=== PATIENT | female | born 1930 | race Caucasian/White ===

== ENCOUNTER 2016-11-24 13:42 | Emergency (ER) | payer BC, MEDICARE ==
--- NOTE | 2016-11-24 14:30 | ER Document Report ---
ED Medical Screen (RME) - General Chief Complaint: Dizziness Stated Complaint: WEAKNESS Time seen by provider: 14:23 Mode of Arrival: Wheelchair Information source: Patient Notes: 85 yo female c/o nausea for several weeks. blue looking in room last week, gastrointestinal distress in epigastric and RUQ for weeks (mihir 19yo ago), dizzy and shakey this morning at 11:00 (decreased now). No weight loss. Biopsy of lung was negative. No fever, chronic chills. no night sweats. Dx GERD. New meds from [facility] (lexapro) prevacid, lasix, spiranolactone, she suspects is the reason for the problems. No constipation or diarrhea. No vomiting. Granddaughter states she has bad anxiety. TRAVEL OUTSIDE OF THE [place] IN LAST 30 DAYS: No - Related Data Allergies/Adverse Reactions: No Known Allergies Allergy (Verified 11/24/16 14:03) Past Medical History Renal/ Medical History: Denies: Hx Peritoneal Dialysis Physical Exam - Vital signs Vitals: Temp Pulse Resp BP Pulse Ox 98.8 F 73 16 98/65 L 98 11/24/16 14:06 11/24/16 14:06 11/24/16 14:06 11/24/16 14:06 11/24/16 14:06 Course - Vital Signs Vital signs: Temp Pulse Resp BP Pulse Ox 98.8 F 73 16 98/65 L 98 11/24/16 14:06 11/24/16 14:06 11/24/16 14:06 11/24/16 14:06 11/24/16 14:06
[2016-11-24 15:12] LABS: ABSOLUTE LYMPHOCYTES (AUTO) 1.3 10^3/uL (0.5-4.7); ABSOLUTE MONOCYTES (AUTO) 0.4 10^3/uL (0.1-1.4); ABSOLUTE NEUT (AUTO) 3.2 10^3/uL (1.7-8.2); BASOPHILS % (AUTO) 0.9 % (0-2); EOSINOPHILS % (AUTO) 0.7 % (0-6); HEMATOCRIT 41.2 % (36.0-47.0); HEMOGLOBIN 13.7 g/dL (12.0-15.5); HGB HCT DIFFERENCE -0.1; LYMPHOCYTES % (AUTO) 26.1 % (13-45); MEAN CORPUSCULAR HEMOGLOBIN 28.8 pg (27.0-33.4); MEAN CORPUSCULAR HGB CONC 33.3 g/dL (32.0-36.0); MEAN CORPUSCULAR VOLUME 87 fl (80-97); MONOCYTES % (AUTO) 8.9 % (3-13); RED BLOOD COUNT 4.77 10^6/uL (3.72-5.28); RED CELL DISTRIBUTION WIDTH 13.1 % (11.5-14.0); SEGMENTED NEUTROPHILS % (AUTO) 63.4 % (42-78)
[2016-11-24 15:24] LABS: ALANINE AMINOTRANSFERASE 29 U/L (9-52); ALBUMIN 4.3 g/dL (3.5-5.0); ALKALINE PHOSPHATASE 55 U/L (38-126); ANION GAP 11 (5-19); ASPARTATE AMINO TRANSFERASE 26 U/L (14-36); BILIRUBIN,DIRECT 0.1 mg/dL (0.0-0.4); BLOOD UREA NITROGEN 15 mg/dL (7-20); CALCIUM 9.6 mg/dL (8.4-10.2); CARBON DIOXIDE 27 mmol/L (22-30); CHLORIDE 104 mmol/L (98-107); CREATINE KINASE 63 U/L (30-135); CREATININE RESULT 0.79 mg/dL (0.52-1.25); GLUCOSE 92 mg/dL (75-110); LIPASE 117.9 U/L (23-300); MAGNESIUM 2.2 mg/dL (1.6-2.3); POTASSIUM 4.2 mmol/L (3.6-5.0); TOTAL PROTEIN 6.9 g/dL (6.3-8.2)
[2016-11-24 15:38] LABS: TROPONIN I < 0.012 ng/mL
[2016-11-24 16:47] LABS: APPEARANCE,URINE CLEAR; BILIRUBIN,URINE NEGATIVE (NEGATIVE); GLUCOSE, URINE NEGATIVE (NEGATIVE); KETONES,URINE NEGATIVE (NEGATIVE); LEUKOCYTE ESTERASE,URINE NEGATIVE (NEGATIVE); NITRITE,URINE NEGATIVE (NEGATIVE); PROTEIN,URINE NEGATIVE (NEGATIVE); URINE SPECIFIC GRAVITY 1.005; UROBILINOGEN,URINE NEGATIVE mg/dL (<2.0)
--- NOTE | 2016-11-24 18:21 | EKG REPORT ---
SEVERITY:- ABNORMAL ECG - SINUS RHYTHM LEFT ANTERIOR FASCICULAR BLOCK CONSIDER ANTERIOR INFARCT BORDERLINE PROLONGED QT INTERVAL : Confirmed by: Cheikh Brice MD 24-Nov-2016 18:21:06
[2016-11-25 00:26] VITALS: BP 156/86
--- NOTE | 2016-11-25 00:32 | ER Document Report ---
ED General - General Chief Complaint: Dizziness Stated Complaint: WEAKNESS Mode of Arrival: Wheelchair Information source: Patient, Relative Notes: 85-year-old female history of anxiety depression chronic dizziness and nausea presents with complaints of nausea and dizziness. Patient denies any vomiting denies any fevers or chills denies any abdominal pain denies any headache. TRAVEL OUTSIDE OF THE [place] IN LAST 30 DAYS: No - HPI Onset: Other Onset/Duration: Persistent Quality of pain: No pain Severity: Mild Pain Level: Denies Associated symptoms: Nausea, Weakness, Other Exacerbated by: Denies Relieved by: Denies Similar symptoms previously: Yes Recently seen / treated by doctor: Yes - Related Data Allergies/Adverse Reactions: No Known Allergies Allergy (Verified 11/24/16 14:03) Past Medical History - General Information source: Patient - Social History Smoking Status: Never Smoker Cigarette use (# per day): No Chew tobacco use (# tins/day): No Smoking Education Provided: No Family History: Reviewed & Not Pertinent Patient has suicidal ideation: No Patient has homicidal ideation: No Renal/ Medical History: Denies: Hx Peritoneal Dialysis Review of Systems - Review of Systems Notes: REVIEW OF SYSTEMS: CONSTITUTIONAL : Denies fever, chills, or sweats. Denies recent illness. EENT: Denies eye, ear, throat, or mouth pain or symptoms. Denies nasal or sinus congestion or discharge. Denies throat, tongue, or mouth swelling or difficulty swallowing. CARDIOVASCULAR: Denies chest pain. Denies palpitations or racing or irregular heart beat. Denies ankle edema. RESPIRATORY: Denies cough, cold, or chest congestion. Denies shortness of breath, difficulty breathing, or wheezing. GASTROINTESTINAL: Admits nausea GENITOURINARY: Denies difficulty urinating, painful urination, burning, frequency, blood in urine, or discharge. FEMALE GENITOURINARY: Denies vaginal bleeding, heavy or abnormal periods, irregular periods. Denies vaginal discharge or odor. MUSCULOSKELETAL: Denies back or neck pain or stiffness. Denies joint pain or swelling. SKIN: Denies rash, lesions or sores. HEMATOLOGIC : Denies easy bruising or bleeding. LYMPHATIC: Denies swollen, enlarged glands. NEUROLOGICAL: Admits to dizziness PSYCHIATRIC: Denies anxiety or stress. Denies depression, suicidal ideation, or homicidal ideation. ALL OTHER SYSTEMS REVIEWED AND NEGATIVE. Dictation was performed using Dragon voice recognition software PHYSICAL EXAMINATION: GENERAL: Well-appearing, well-nourished and in no acute distress. HEAD: Atraumatic, normocephalic. EYES: Pupils equal round and reactive to light, extraocular movements intact, conjunctiva are normal. ENT: Nares patent, oropharynx clear without exudates. Moist mucous membranes. NECK: Normal range of motion, supple without lymphadenopathy LUNGS: Breath sounds clear to auscultation bilaterally and equal. No wheezes rales or rhonchi. HEART: Regular rate and rhythm without murmurs ABDOMEN: Soft, nontender, nondistended abdomen. No guarding, no rebound. No masses appreciated. Female : deferred Musculoskeletal: Normal range of motion, no pitting or edema. No cyanosis. NEUROLOGICAL: Cranial nerves grossly intact. Normal speech, normal gait. Normal sensory, motor exams PSYCH: Normal mood, normal affect. SKIN: Warm, Dry, normal turgor, no rashes or lesions noted. Physical Exam - Vital signs Vitals: Temp Pulse Resp BP Pulse Ox 98.8 F 73 16 98/65 L 98 11/24/16 14:05 11/24/16 14:05 11/24/16 14:05 11/24/16 14:05 11/24/16 14:05 Course - Re-evaluation Re-evalutation: 11/25/16 00:[address] of the head has a concerning area of hypoattenuation, therefore an MRI was performed which noted no acute abnormality, I reviewed this with the radiologist as well. Lab work noted no significant abnormalities. I believe patient is stable for discharge will treat with Reglan and Antivert After performing a Medical Screening Examination, I estimate there is LOW risk for INTRACRANIAL HEMORRHAGE, ISCHEMIC CVA, MALIGNANT DYSRHYTHMIA, ACUTE CORONARY SYNDROME, MENINGITIS, PULMONARY EMBOLISM, or SEPSIS thus I consider the discharge disposition reasonable. I have reevaluated this patient multiple times and no significant life threatening changes are noted. The patient and I have discussed the diagnosis and risks, and we agree with discharging home with close follow-up with the understanding that symptoms and presentations can change. We also discussed returning to the Emergency Department immediately if new or worsening symptoms occur. We have discussed the symptoms which are most concerning (e.g., changing or worsening pain, weakness, vomiting, fever) that necessitate immediate return. - Vital Signs Vital signs: Temp Pulse Resp BP Pulse Ox 98.8 F 78 16 156/86 H 97 11/24/16 14:06 11/25/16 00:10 11/25/16 00:10 11/25/16 00:10 11/25/16 00:10 - Laboratory Result Diagrams: 11/24/16 14:40 11/24/16 14:40 Laboratory results interpreted by me: 11/24/16 16:30 Urine Blood SMALL H - Diagnostic Test Radiology reviewed: Image reviewed, Reports reviewed - MRI noted no acute abnormality Discharge - Discharge Clinical Impression: Dizziness, Nausea Condition: Stable Disposition: HOME, SELF-CARE Instructions: Dizziness ([facility]) Prescriptions: Meclizine HCl [Antivert 25 mg Tablet] 25 mg PO TID PRN #21 tablet PRN Reason: Metoclopramide HCl [Reglan 10 mg Tablet] 1 - 2 tab PO ASDIR PRN #25 tablet PRN Reason: Referrals: JEAN CARLOS CURRY MD [Primary Care Provider] - Follow up tomorrow
== END 2016-11-25 00:45 | disposition home or self-care (01) ==
LOC: ER 13:42
DX: R42 Dizziness and giddiness (principal); R11.0 Nausea; R53.1 Weakness
CPT/HCPCS: 93005; 99284; 36415; 87086; 82553; 82550; 83690; 83735; 85025; 80053; 81001; 84484; 70553; 74022; 70450; 93010; A9577

== ENCOUNTER → 2017-01-29 | Outpatient (CLI) | payer MEDICARE, BC ==
--- NOTE | 2017-02-10 08:21 | WOMENS IMAGING REPORT ---
EXAM DESCRIPTION: 3D SCREENING MAMMO BILAT COMPLETED DATE/TIME: 01/29/2017 9:35 am REASON FOR STUDY: ROUTINE SCREENING; Z12.31 Z12.31 ENCNTR SCREEN MAMMOGRAM FOR MALIGNANT NEOPLASM O F ROSENDO COMPARISON: 11/26/2014, 12/10/2015 TECHNIQUE: Standard craniocaudal and mediolateral oblique views of each breast recorded using digita l acquisition and breast tomosynthesis. LIMITATIONS: None. FINDINGS: Findings present which are benign by mammographic criteria. No suspicious masses, calcifi cations or architectural distortion. Pertinent benign findings: Stable bilateral breast parenchymal calcifications Read with the assistance of CAD. .[facility] - R2 Cenova Version 1.3 .[facility] - R2 Cenova Version 1.3 .[facility] - R2 Cenova Version 2.4 .[facility] - R2 Cenova Version 2.4 .[facility] - R2 Squaring Machine Operator Version 9.2 Benign mammographic findings may include one or more of the following: Smooth masses, popcorn/rim/co arse calcifications, asymmetries, post-procedure changes, and lesions with long-standing stability. IMPRESSION: BENIGN MAMMOGRAPHIC FINDINGS. BIRADS 2 BREAST DENSITY: c. The breasts are heterogeneously dense, which may obscure small masses. BIRAD: 2 BENIGN FINDING(S) RECOMMENDATION: RECOMMENDATION: ROUTINE SCREENING COMMENT: The patient has been notified of the results by letter per SA requirements. Additional no tification policies are in place for contacting patient with suspicious or incomplete findings. Quality ID #[id number]: The [employer] recommends an annual screening mammogram for women aged 40 years or over. This facility utilizes a reminder system to ensure that all patients receive reminder letters, and/or direct phone calls for appointments. This includes reminders for routine scr eening mammograms, diagnostic mammograms, or other Breast Imaging Interventions when appropriate. Th is patient will be placed in the appropriate reminder system. The [employer] (ACR) has developed recommendations for screening MRI of the breast s in certain patient populations, to be used in conjunction with mammography. Breast MRI surveillanc e may be appropriate for women with more than 20% lifetime risk of developing breast cancer as deter mined by genetic testing, significant family history of the disease, or history of mantle radiation f or Hodgkins Disease. ACR Practice Guidelines 2008. DBT Technology DBT is a type of tomographic mammography. With conventional mammography, overlapping breast tissue ma y make lesions difficult to detect, even with good compression. DBT uses an x-ray tube that rotates a round the breast, taking images at different angles. These images are then combined to create thin sl ices of the breast that the radiologist can view as a 3D reconstruction. The [employer] unit can perform full-field digital mammograms (2D imaging); or DBT (3D imaging); or both, in a combination mode that quickly performs both the mammogram and the tomosynthesis scan while the breast is still compressed. PQRS 6045F: Fluoroscopic imaging is not utilized for breast tomosynthesis. TECHNICAL DOCUMENTATION: FINDING NUMBER: (1) ASSESSMENT: (1) JOB ID: [id number] [employer]- All Rights Reserved
== END ==
LOC: WI 09:20
PROVIDERS: ATTEND Internal Medicine
DX: Z12.31 Encounter for screening mammogram for malignant neoplasm of breast (principal)
CPT/HCPCS: 77063; G0202; 77067

== ENCOUNTER 2017-08-31 11:17 | Emergency (ER) | payer MEDICARE, BC ==
[2017-08-31] MEDS ORDERED: NORMAL SALINE 1000 ML 1,000 ML IV ONE (12:44)
--- NOTE | 2017-08-31 12:46 | ER Document Report ---
ED Medical Screen (RME) - General Chief Complaint: Abdominal Pain Stated Complaint: NAUSEA,VOMITING,ABDOMINAL PAIN Time Seen by Provider: 08/31/17 12:44 Notes: Patient was recently diagnosed with an upper respiratory tract infection/ pneumonia. She was started on Augmentin. She then began to have some nausea and was subsequently diagnosed with possible thrush. She has been placed on Mycelex as well as fluconazole. She is also been recently started on some psychiatric medications. According the daughter patient has been not eating. She has had decreased urinary output. She has lost 8 pounds recently. She states she was referred by her family physician who feels that she may have dehydration. TRAVEL OUTSIDE OF THE [place] IN LAST 30 DAYS: No - Related Data Allergies/Adverse Reactions: No Known Allergies Allergy (Verified 08/31/17 11:24) Past Medical History Pulmonary Medical History: Reports: Hx COPD Renal/ Medical History: Denies: Hx Peritoneal Dialysis GI Medical History: Reports: Hx Gastroesophageal Reflux Disease Past Surgical History: Reports: Hx Appendectomy, Hx Cholecystectomy, Hx Gynecologic Surgery - ex lap fibroidectomy, Hx Hysterectomy, Hx Orthopedic Surgery - l knee meniscal - Immunizations Hx Diphtheria, Pertussis, Tetanus Vaccination: Yes Physical Exam - Vital signs Vitals: Temp Pulse Resp BP Pulse Ox 98.4 F 90 16 127/69 H 96 08/31/17 11:49 08/31/17 11:49 08/31/17 11:49 08/31/17 11:49 08/31/17 11:49 Course - Vital Signs Vital signs: Temp Pulse Resp BP Pulse Ox 98.4 F 90 16 127/69 H 96 08/31/17 11:49 08/31/17 11:49 08/31/17 11:49 08/31/17 11:49 08/31/17 11:49
[2017-08-31 13:45] LABS: APPEARANCE,URINE CLEAR; BILIRUBIN,URINE NEGATIVE (NEGATIVE); COLOR,URINE YELLOW; GLUCOSE, URINE NEGATIVE (NEGATIVE); KETONES,URINE TRACE mg/dL (NEGATIVE); LEUKOCYTE ESTERASE,URINE NEGATIVE (NEGATIVE); NITRITE,URINE NEGATIVE (NEGATIVE); PROTEIN,URINE NEGATIVE (NEGATIVE); URINE SPECIFIC GRAVITY 1.016
[2017-08-31 14:05] LABS: ABSOLUTE LYMPHOCYTES (AUTO) 0.9 10^3/uL (0.5-4.7); ABSOLUTE MONOCYTES (AUTO) 0.3 10^3/uL (0.1-1.4); BASOPHILS % (AUTO) 0.9 % (0-2); EOSINOPHILS % (AUTO) 0.3 % (0-6); HEMATOCRIT 40.2 % (36.0-47.0); HEMOGLOBIN 13.7 g/dL (12.0-15.5); LYMPHOCYTES % (AUTO) 21.1 % (13-45); MEAN CORPUSCULAR HEMOGLOBIN 29.3 pg (27.0-33.4); MEAN CORPUSCULAR HGB CONC 34.1 g/dL (32.0-36.0); MEAN CORPUSCULAR VOLUME 86 fl (80-97); MONOCYTES % (AUTO) 6.9 % (3-13); PLATELET COUNT 199 10^3/uL (150-450); RED BLOOD COUNT 4.68 10^6/uL (3.72-5.28); RED CELL DISTRIBUTION WIDTH 13.6 % (11.5-14.0); SEGMENTED NEUTROPHILS % (AUTO) 70.8 % (42-78); TOTAL CELLS COUNTED % (AUTO) 100 %; WHITE BLOOD COUNT 4.2 10^3/uL (4.0-10.5)
[2017-08-31 14:28] LABS: ALANINE AMINOTRANSFERASE 32 U/L (9-52); ALBUMIN 4.8 g/dL (3.5-5.0); ALKALINE PHOSPHATASE 59 U/L (38-126); ANION GAP 12 (5-19); ASPARTATE AMINO TRANSFERASE 28 U/L (14-36); BILIRUBIN,DIRECT 0.2 mg/dL (0.0-0.4); BILIRUBIN,TOTAL 0.9 mg/dL (0.2-1.3); BLOOD UREA NITROGEN 16 mg/dL (7-20); CALCIUM 10.6 mg/dL (8.4-10.2); CARBON DIOXIDE 26 mmol/L (22-30); CHLORIDE 106 mmol/L (98-107); GLUCOSE 90 mg/dL (75-110); POTASSIUM 4.1 mmol/L (3.6-5.0); SODIUM 144.1 mmol/L (137-145); TOTAL PROTEIN 7.5 g/dL (6.3-8.2)
--- NOTE | 2017-08-31 18:28 | ER Document Report ---
ED General - General Chief Complaint: Abdominal Pain Stated Complaint: NAUSEA,VOMITING,ABDOMINAL PAIN Time Seen by Provider: 08/31/17 12:44 Information source: Patient, Relative TRAVEL OUTSIDE OF THE [place] IN LAST 30 DAYS: No - HPI Patient complains to provider of: tongue and throat pain Onset: Last week Onset/Duration: Gradual Quality of pain: Sharp Notes: Patient states on 08/03/2017 she was diagnosed with strep she had 4 days antibiotics. She stated the antibiotics bother her stomach so much she had to stop. She did receive Bicillin on 08/07/2017. Patient states that that she has had pain in her mouth especially the tip of her tongue as well as reflux since taking antibiotics.She is also on diflucan for thrush but this also bothers her stomach. Not eating very much. - Related Data Allergies/Adverse Reactions: No Known Allergies Allergy (Verified 08/31/17 11:24) Past Medical History - General Information source: Patient, Relative - Social History Smoking Status: Unknown if Ever Smoked Chew tobacco use (# tins/day): No Frequency of alcohol use: Rare Drug Abuse: None Family History: Reviewed & Not Pertinent Patient has suicidal ideation: No Patient has homicidal ideation: No - Past Medical History Cardiac Medical History: Reports: None Pulmonary Medical History: Reports: Hx Asthma, Hx COPD EENT Medical History: Reports: None Neurological Medical History: Reports: None Endocrine Medical History: Reports: None Renal/ Medical History: Denies: Hx Peritoneal Dialysis GI Medical History: Reports: Hx Gastroesophageal Reflux Disease Musculoskeltal Medical History: Reports Hx Arthritis Psychiatric Medical History: Reports: Hx Anxiety Traumatic Medical History: Reports: None Past Surgical History: Reports: Hx Appendectomy, Hx Cholecystectomy, Hx Gynecologic Surgery - ex lap fibroidectomy, Hx Hysterectomy, Hx Orthopedic Surgery - l knee meniscal - Immunizations Hx Diphtheria, Pertussis, Tetanus Vaccination: Yes Review of Systems - Review of Systems Constitutional: Malaise EENT: Mouth pain Cardiovascular: No symptoms reported Respiratory: No symptoms reported Gastrointestinal: Constipation, Poor appetite, Poor fluid intake. denies: Abdomen distended, Abdominal pain, Diarrhea, Nausea, Vomiting Genitourinary: No symptoms reported Female Genitourinary: No symptoms reported Musculoskeletal: No symptoms reported Skin: No symptoms reported Hematologic/Lymphatic: No symptoms reported Neurological/Psychological: No symptoms reported Physical Exam - Vital signs Vitals: Temp Pulse Resp BP Pulse Ox 98.4 F 90 16 127/69 H 96 08/31/17 11:49 08/31/17 11:49 08/31/17 11:49 08/31/17 11:49 08/31/17 11:49 - Notes Notes: PHYSICAL EXAMINATION: GENERAL: Well-appearing, well-nourished and in no acute distress. Markedly anxious. HEAD: Atraumatic, normocephalic. EYES: Pupils equal round and reactive to light, extraocular movements intact, conjunctiva are normal. ENT: Nares patent, oropharynx clear without exudates. Moist mucous membranes. No thrush. NECK: Normal range of motion, supple without lymphadenopathy LUNGS: Breath sounds clear to auscultation bilaterally and equal. No wheezes rales or rhonchi. HEART: Regular rate and rhythm without murmurs ABDOMEN: Soft, nontender, nondistended abdomen. No guarding, no rebound. No masses appreciated. Female : deferred Musculoskeletal: Normal range of motion, no pitting or edema. No cyanosis. NEUROLOGICAL: Cranial nerves grossly intact. Normal speech, normal gait. Normal sensory, motor exams PSYCH: Normal mood, normal affect. SKIN: Warm, Dry, normal turgor, no rashes or lesions noted. Course - Re-evaluation Re-evalutation: 08/31/17 18:23 Did spend 15 minutes talking with the patient as well as her family members. Patient is extremely anxious. She has multiple questions. I did answer them all. Patient was discharged home in stable condition. She was instructed to take Prevacid 30 mg p.o. daily. She was instructed to stop taking her Diflucan as I do not see any signs of thrush. She was told to eat 3 good meals throughout the day. To avoid dairy for now. She can add almond milk in her oatmeal so that she will get increased protein intake. Told her if she continues to have reflux that is not controlled she will have to get another GI consult for possible endoscopy. Patient and family members verbalized understanding. All questions were answered. Patient left with a plan that she was agreeable to. 09/01/17 21:21 09/01/17 21:21 Labs- Entire Visit 08/31/17 08/31/17 08/31/17 13:25 13:40 13:40 WBC 4.2 RBC 4.68 Hgb 13.7 Hct 40.2 MCV 86 MCH 29.3 MCHC 34.1 RDW 13.6 Plt Count 199 Seg Neutrophils % 70.8 Lymphocytes % 21.1 Monocytes % 6.9 Eosinophils % 0.3 Basophils % 0.9 Absolute Neutrophils 3.0 Absolute Lymphocytes 0.9 Absolute Monocytes 0.3 Absolute Eosinophils 0.0 Absolute Basophils 0.0 Sodium 144.1 Potassium 4.1 Chloride 106 Carbon Dioxide 26 Anion Gap 12 BUN 16 Creatinine 0.79 Est GFR ( Amer) > 60 Est GFR (Non-Af Amer) > 60 Glucose 90 Calcium 10.6 H Total Bilirubin 0.9 Direct Bilirubin 0.2 Neonat Total Bilirubin Not Reportable Neonat Direct Bilirubin Not Reportable Neonat Indirect Bili Not Reportable AST 28 ALT 32 Alkaline Phosphatase 59 Total Protein 7.5 Albumin 4.8 Urine Color YELLOW Urine Appearance CLEAR Urine pH 6.0 Ur Specific [place] 1.016 Urine Protein NEGATIVE Urine Glucose (UA) NEGATIVE Urine Ketones TRACE H Urine Blood NEGATIVE Urine Nitrite NEGATIVE Urine Bilirubin NEGATIVE Urine Urobilinogen 2.0 H Ur Leukocyte Esterase NEGATIVE Urine WBC (Auto) 2 Urine RBC (Auto) 1 U Hyaline Cast (Auto) 4 Urine Mucus (Auto) OCC Urine Ascorbic Acid NEGATIVE - Vital Signs Vital signs: Temp Pulse Resp BP Pulse Ox 97.5 F 87 18 129/75 H 97 08/31/17 18:30 08/31/17 18:30 08/31/17 18:30 08/31/17 18:30 08/31/17 18:30 - Laboratory Result Diagrams: 08/31/17 13:40 08/31/17 13:40 Laboratory results interpreted by me: 08/31/17 08/31/17 13:25 13:40 Calcium 10.6 H Urine Ketones TRACE H Urine Urobilinogen 2.0 H Discharge - Discharge Clinical Impression: Mouth pain Disposition: HOME, SELF-CARE Additional Instructions: Follow up with your physician tomorrow for further care or return to the ED IMMEDIATELY if symptoms worsen or new concerns occur. If you cannot afford to follow up with your primary care physician a list of low cost clinics have been provided at the end of your discharge papers as well. Referrals: JEAN CARLOS CURRY MD [Primary Care Provider] - Follow up as needed
[2017-08-31 18:36] VITALS: BP 129/75
== END 2017-08-31 18:36 | disposition home or self-care (01) ==
LOC: ER 11:17
DX: K08.89 Other specified disorders of teeth and supporting structures (principal); R10.9 Unspecified abdominal pain; R11.2 Nausea with vomiting, unspecified; R07.0 Pain in throat; F41.9 Anxiety disorder, unspecified
CPT/HCPCS: 99284; 96360; 36415; 85025; 80053; 81001; J7030

== ENCOUNTER 2017-09-04 21:21 | Emergency (ER) | payer MEDICARE, BC ==
[2017-09-04] MEDS ORDERED: NORMAL SALINE 500 ML IV ONE (21:49)
[2017-09-04 22:01] LABS: ABSOLUTE BASOPHILS # (AUTO) 0.1 10^3/uL (0.0-0.2); ABSOLUTE LYMPHOCYTES (AUTO) 1.4 10^3/uL (0.5-4.7); ABSOLUTE MONOCYTES (AUTO) 0.4 10^3/uL (0.1-1.4); ABSOLUTE NEUT (AUTO) 2.9 10^3/uL (1.7-8.2); BASOPHILS % (AUTO) 1.1 % (0-2); EOSINOPHILS % (AUTO) 0.8 % (0-6); HEMATOCRIT 38.9 % (36.0-47.0); HEMOGLOBIN 13.1 g/dL (12.0-15.5); LYMPHOCYTES % (AUTO) 29.7 % (13-45); MEAN CORPUSCULAR HEMOGLOBIN 29.1 pg (27.0-33.4); MEAN CORPUSCULAR HGB CONC 33.8 g/dL (32.0-36.0); MEAN CORPUSCULAR VOLUME 86 fl (80-97); MONOCYTES % (AUTO) 8.6 % (3-13); PLATELET COUNT 205 10^3/uL (150-450); RED BLOOD COUNT 4.52 10^6/uL (3.72-5.28); RED CELL DISTRIBUTION WIDTH 13.6 % (11.5-14.0); SEGMENTED NEUTROPHILS % (AUTO) 59.8 % (42-78); TOTAL CELLS COUNTED % (AUTO) 100 %; WHITE BLOOD COUNT 4.8 10^3/uL (4.0-10.5)
[2017-09-04 22:20] LABS: ALANINE AMINOTRANSFERASE 21 U/L (9-52); ALBUMIN 4.6 g/dL (3.5-5.0); ALKALINE PHOSPHATASE 51 U/L (38-126); ANION GAP 10 (5-19); ASPARTATE AMINO TRANSFERASE 30 U/L (14-36); BILIRUBIN,DIRECT 0.1 mg/dL (0.0-0.4); BILIRUBIN,TOTAL 0.8 mg/dL (0.2-1.3); BLOOD UREA NITROGEN 13 mg/dL (7-20); CARBON DIOXIDE 26 mmol/L (22-30); CHLORIDE 104 mmol/L (98-107); GLUCOSE 139 mg/dL (75-110); LIPASE 161.4 U/L (23-300); POTASSIUM 3.3 mmol/L (3.6-5.0); SODIUM 140.1 mmol/L (137-145); TOTAL PROTEIN 6.9 g/dL (6.3-8.2)
[2017-09-04 23:33] LABS: APPEARANCE,URINE CLEAR; BILIRUBIN,URINE NEGATIVE (NEGATIVE); COLOR,URINE STRAW; GLUCOSE, URINE NEGATIVE (NEGATIVE); KETONES,URINE NEGATIVE (NEGATIVE); LEUKOCYTE ESTERASE,URINE SMALL (NEGATIVE); NITRITE,URINE NEGATIVE (NEGATIVE); PROTEIN,URINE NEGATIVE (NEGATIVE); URINE SPECIFIC GRAVITY 1.003; UROBILINOGEN,URINE NEGATIVE mg/dL (<2.0)
--- NOTE | 2017-09-04 23:55 | RADIOLOGY REPORT (SQ) ---
EXAM DESCRIPTION: CT ABD/PELVIS WITH IV ONLY COMPLETED DATE/TIME: 09/04/2017 11:25 pm REASON FOR STUDY: elderly abdominal pain COMPARISON: None. TECHNIQUE: CT scan of the abdomen and pelvis performed using helical scanning technique with dynamic intravenous contrast injection. No oral contrast. Images reviewed with lung, soft tissue, and bone windows. Reconstructed coronal and sagittal MPR images reviewed. Delayed images for evaluation of the urinary system also acquired. All images stored on PACS. All CT scanners at this facility use dose modulation, iterative reconstruction, and/or weight based d osing when appropriate to reduce radiation dose to as low as reasonably achievable (ALARA). [facility]: Dose Right [facility]: CareDose [facility]: Dose Right [facility]: Teradose 4D [facility]: Gotuit CONTRAST TYPE AND DOSE: contrast/concentration: Isovue 370.00 mg/ml; Total Contrast Delivered: 67.0 ml; Total Saline Delivered: 65.1 ml RENAL FUNCTION: GFR > 60. RADIATION DOSE: CT Rad equipment meets quality standard of care and radiation dose reduction techniq ues were employed. CTDIvol: 5.7 - 7.7 mGy. DLP: 617 mGy-cm.. LIMITATIONS: None. FINDINGS: LOWER CHEST: No significant findings. No nodules or infiltrates. LIVER: Normal size. No masses. No dilated ducts. SPLEEN: Normal size. No focal lesions. PANCREAS: No masses. No significant calcifications. No adjacent inflammation or peripancreatic fluid collections. Pancreatic duct not dilated. GALLBLADDER: Surgically absent. ADRENAL GLANDS: No significant masses or asymmetry. RIGHT KIDNEY AND URETER: No solid masses. No significant calcifications. No hydronephrosis or hyd roureter. LEFT KIDNEY AND URETER: No solid masses. No significant calcifications. No hydronephrosis or hydr oureter. AORTA AND VESSELS: No aneurysm. No dissection. Renal arteries, SMA, celiac without stenosis. RETROPERITONEUM: No retroperitoneal adenopathy, hemorrhage or masses. BOWEL AND PERITONEAL CAVITY: No masses or inflammatory changes. No free fluid or peritoneal masses. APPENDIX: Normal. PELVIS: Prior hysterectomy. No free fluid. Normal bladder. ABDOMINAL WALL: No masses. No hernias. BONES: No acute findings. OTHER: No other significant finding. IMPRESSION: NO ACUTE FINDING IN THE ABDOMEN OR PELVIS ON CT SCAN WITH IV CONTRAST. TECHNICAL DOCUMENTATION: JOB ID: [id number] Quality ID # [id number]: Final reports with documentation of one or more dose reduction techniques (e.g., Au tomated exposure control, adjustment of the mA and/or kV according to patient size, use of iterative reconstruction technique) 2010 [employer]- All Rights Reserved
[2017-09-05 00:33] VITALS: BP 133/72
--- NOTE | 2017-09-05 00:52 | ER Document Report ---
ED General - General Chief Complaint: Abdominal Pain Stated Complaint: ABDOMINAL PAIN Time Seen by Provider: 09/04/17 22:18 Notes: Patient is an 86-year-old female who presents with multiple complaints. Her primary concern is regarding a poor taste in her mouth which she describes as "feeling like somebody is trying to poison me". She also notes a dull, constant , epigastric abdominal pain worsened by eating or drinking. Patient states that she feels very anxious all the time. Family at the bedside reports that the patient has been reading up the side effects of almost every medication that she is taking and then develops those side effects thereafter. The patient denies this complaint stating that the family is exaggerating. The patient is also often refused to take medications that have been prescribed by her primary care doctor due to concerns about side effects. The patient was seen in the emergency department several days ago for the same complaints at that time. She struggled to identify what improves or worsens her symptoms. The family at bedside states that they feel very strongly that this is all related to patient's underlying anxiety. TRAVEL OUTSIDE OF THE [place] IN LAST 30 DAYS: No - Related Data Allergies/Adverse Reactions: No Known Allergies Allergy (Verified 08/31/17 11:24) Past Medical History - General Information source: Patient, Relative - Social History Smoking Status: Never Smoker Chew tobacco use (# tins/day): No Frequency of alcohol use: None Drug Abuse: None Lives with: Family Family History: Reviewed & Not Pertinent Patient has suicidal ideation: No Patient has homicidal ideation: No Pulmonary Medical History: Reports: Hx Asthma, Hx COPD Renal/ Medical History: Denies: Hx Peritoneal Dialysis GI Medical History: Reports: Hx Gastroesophageal Reflux Disease Musculoskeltal Medical History: Reports Hx Arthritis Psychiatric Medical History: Reports: Hx Anxiety Past Surgical History: Reports: Hx Appendectomy, Hx Cholecystectomy, Hx Gynecologic Surgery - ex lap fibroidectomy, Hx Hysterectomy, Hx Orthopedic Surgery - l knee meniscal - Immunizations Hx Diphtheria, Pertussis, Tetanus Vaccination: Yes Review of Systems - Review of Systems Notes: Constitutional: Negative for fever. HENT: Positive for mouth pain Eyes: Negative for visual changes. Cardiovascular: Negative for chest pain. Respiratory: Negative for shortness of breath. Gastrointestinal: Positive for abdominal pain nausea Genitourinary: Negative for dysuria. Musculoskeletal: Negative for back pain. Skin: Negative for rash. Neurological: Negative for headaches, weakness or numbness. 10 point ROS negative except as marked above and in HPI. Physical Exam - Vital signs Vitals: Temp Pulse Resp BP Pulse Ox 97.9 F 79 20 88/53 L 98 09/04/17 21:33 09/04/17 21:33 09/04/17 21:33 09/04/17 21:33 09/04/17 21:33 Interpretation: Hypotensive - This did resolve spontaneously Notes: PHYSICAL EXAMINATION: GENERAL: Well-appearing, well-nourished and in no acute distress. HEAD: Atraumatic, normocephalic. EYES: Pupils equal round and reactive to light, extraocular movements intact, sclera anicteric, conjunctiva are normal. ENT: nares patent, oropharynx clear without exudates. Moist mucous membranes. NECK: Normal range of motion, supple without lymphadenopathy LUNGS: Breath sounds clear to auscultation bilaterally and equal. No wheezes rales or rhonchi. HEART: Regular rate and rhythm without murmurs ABDOMEN: Soft, nontender, normoactive bowel sounds. No guarding, no rebound. No masses appreciated. EXTREMITIES: Normal range of motion, no pitting or edema. No cyanosis. NEUROLOGICAL: No focal neurological deficits. Moves all extremities spontaneously and on command. PSYCH: Appears extremely anxious, somewhat tremulous SKIN: Warm, Dry, normal turgor, no rashes or lesions noted. Course - Re-evaluation Re-evalutation: 09/05/17 00:50 Patient presents with multiple vague complaints that did not appear to be concerning for any acute life-threatening pathology. Vitals are within normal limits at triage and at time of discharge. Physical examination is unremarkable. Patient has tolerated oral intake without difficulty. Patient was not noted to be in distress at any point during their ER visit. At this time, based on the reassuring evaluation, I do not suspect an acute MN, pulmonary embolus, aortic dissection, acute intra-abdominal pathology, stroke, or sepsis. Labs, CT abdomen pelvis are all unremarkable. Patient is extremely anxious and clearly has underlying untreated depression. She did recently start Zoloft through her psychiatrist but has been very hesitant to take this due to concern about side effects. Again emphasized with the patient the critical importance of continuing to take these medications as I feel her fixation on side effect profiles is likely part of her untreated depression and anxiety. I have also started her on famotidine 40 mg twice daily. Will discharge with return precautions and follow-up recommendations. Verbal discharge instructions given a the bedside and opportunity for questions given. Medication warnings reviewed. Patient is in agreement with this plan and has verbalized understanding of return precautions and the need for primary care follow-up in the next 24-72 hours. - Vital Signs Vital signs: Temp Pulse Resp BP Pulse Ox 97.9 F 79 9 L 133/72 H 98 09/04/17 21:33 09/04/17 21:33 09/05/17 00:33 09/05/17 00:33 09/05/17 00:33 - Laboratory Result Diagrams: 09/04/17 21:40 09/04/17 21:40 Laboratory results interpreted by me: 09/04/17 09/04/17 21:40 23:00 Potassium 3.3 L Glucose 139 H Ur Leukocyte Esterase SMALL H - Diagnostic Test Radiology reviewed: Reports reviewed Discharge - Discharge Clinical Impression: Chronic anxiety, Epigastric abdominal pain Condition: Good Disposition: HOME, SELF-CARE Additional Instructions: Your symptoms appear to be most consistent with stomach or upper intestinal irritation. Please begin taking famotidine 40 mg in the morning and 40 mg at night. You may also take medicine such as Pepto-Bismol or Tums to assist with your pain. Please return to emergency department immediately if you have worsening of your pain, shortness of breath, vomiting, become unable to exert yourself due to pain or difficulty breathing, you pass out, or have any pain that radiates into your arms, jaw, or back. Please also return if you have any additional symptoms that are concerning to you. Please also continue to take the Zoloft that has been prescribed by your psychiatrist. This will be critical in improving your overall symptoms. Prescriptions: Famotidine 40 mg PO BID #60 tablet Referrals: JEAN CARLOS CURRY MD [Primary Care Provider] - Follow up as needed
== END 2017-09-05 01:04 | disposition home or self-care (01) ==
LOC: ER 21:21
DX: F41.9 Anxiety disorder, unspecified (principal); R10.13 Epigastric pain
CPT/HCPCS: 99284; 36415; 83690; 85025; 80053; 81001; 74177; J7040

== ENCOUNTER → 2017-09-14 | Outpatient (CLI) | payer MEDICARE, BC ==
--- NOTE | 2017-09-14 16:33 | RADIOLOGY REPORT (SQ) ---
EXAM DESCRIPTION: UPPER GI/SM BOWEL COMPLETED DATE/TIME: 09/14/2017 10:00 am REASON FOR STUDY: HEARTBURN (R12) R12 HEARTBURN COMPARISON: None. TECHNIQUE: Under fluoroscopic guidance, patient ingested effervescent granules followed by thick and thin barium. Fluoroscopic spot images and routine radiographic images acquired and stored on PACS. 12 MM BARIUM TABLET GIVEN: Yes. No significant delay in passage. LIMITATIONS: None. FLUOROSCOPY TIME: FLUORO TIME: 3.8 minutes 27 images saved to PACS. FINDINGS: NEUROMUSCULAR COORDINATION OF SWALLOW: Normal. No aspiration. ESOPHAGEAL MOTILITY: Normal peristalsis. No esophageal spasm. ESOPHAGEAL MUCOSA: Normal mucosa without masses or ulceration. GASTRO-ESOPHAGEAL JUNCTION: Tiny hiatal hernia. Unprovoked gastroesophageal reflux to the cervical e sophagus. STOMACH: Normal without masses or ulcerations. GASTRIC OUTLET: No delay in emptying. Normal pylorus. DUODENAL BULB: Normal distention. No spasm or ulceration. DUODENUM: Mucosa normal. No extrinsic masses or malrotation. PROXIMAL SMALL BOWEL: Mucosa normal. No extrinsic masses or malrotation. NON-GI TRACT STRUCTURES: No significant finding. OTHER: Clips right upper quadrant post cholecystectomy. IMPRESSION: Gastroesophageal reflux to the cervical esophagus. No esophageal stricture. No gastric outlet obstruction. Normal small bowel transit time and mucosal fold pattern. COMMENT: Quality ID [id number]: Final reports for procedures using fluoroscopy that document radiation exp osure indices, or exposure time and number of fluorographic images (if radiation exposure indices are not available) TECHNICAL DOCUMENTATION: JOB ID: [id number] [employer]- All Rights Reserved
== END ==
LOC: RAD 07:33
PROVIDERS: ATTEND Internal Medicine Gastroenterology
DX: R12 Heartburn (principal)
CPT/HCPCS: 74249

== ENCOUNTER 2017-09-18 10:23 | Emergency (ER) | payer MEDICARE, BC ==
--- NOTE | 2017-09-18 10:44 | ER Document Report ---
ED Medical Screen (RME) - General Chief Complaint: Shortness Of Breath Stated Complaint: SHORTNESS OF BREATH Time Seen by Provider: 09/18/17 10:42 Mode of Arrival: Wheelchair Information source: Patient, Relative TRAVEL OUTSIDE OF THE [place] IN LAST 30 DAYS: No - HPI Patient complains to provider of: sob Onset: Other - pt states she has been sob for several days -- states she has a h /o asthma but has stopped taking her meds - Related Data Allergies/Adverse Reactions: No Known Allergies Allergy (Verified 08/31/17 11:24) Past Medical History Pulmonary Medical History: Reports: Hx Asthma, Hx COPD Renal/ Medical History: Denies: Hx Peritoneal Dialysis GI Medical History: Reports: Hx Gastroesophageal Reflux Disease Musculoskeltal Medical History: Reports Hx Arthritis Psychiatric Medical History: Reports: Hx Anxiety Past Surgical History: Reports: Hx Appendectomy, Hx Cholecystectomy, Hx Gynecologic Surgery - ex lap fibroidectomy, Hx Hysterectomy, Hx Orthopedic Surgery - l knee meniscal - Immunizations Hx Diphtheria, Pertussis, Tetanus Vaccination: Yes Physical Exam - Vital signs Vitals: Pulse Resp BP Pulse Ox 83 18 105/54 L 99 09/18/17 10:34 09/18/17 10:34 09/18/17 10:34 09/18/17 10:34 Course - Vital Signs Vital signs: Temp Pulse Resp BP Pulse Ox 83 18 105/54 L 99 09/18/17 10:34 09/18/17 10:34 09/18/17 10:34 09/18/17 10:34
[2017-09-18 11:27] LABS: ABSOLUTE BASOPHILS # (AUTO) 0.1 10^3/uL (0.0-0.2); ABSOLUTE LYMPHOCYTES (AUTO) 0.9 10^3/uL (0.5-4.7); ABSOLUTE MONOCYTES (AUTO) 0.4 10^3/uL (0.1-1.4); BASOPHILS % (AUTO) 1.2 % (0-2); EOSINOPHILS % (AUTO) 0.3 % (0-6); HEMATOCRIT 40.1 % (36.0-47.0); HEMOGLOBIN 13.7 g/dL (12.0-15.5); LYMPHOCYTES % (AUTO) 21.4 % (13-45); MEAN CORPUSCULAR HGB CONC 34.2 g/dL (32.0-36.0); MEAN CORPUSCULAR VOLUME 85 fl (80-97); MONOCYTES % (AUTO) 8.8 % (3-13); PLATELET COUNT 233 10^3/uL (150-450); RED BLOOD COUNT 4.72 10^6/uL (3.72-5.28); RED CELL DISTRIBUTION WIDTH 13.5 % (11.5-14.0); SEGMENTED NEUTROPHILS % (AUTO) 68.3 % (42-78); TOTAL CELLS COUNTED % (AUTO) 100 %; WHITE BLOOD COUNT 4.3 10^3/uL (4.0-10.5)
--- NOTE | 2017-09-18 11:40 | RADIOLOGY REPORT (SQ) ---
EXAM DESCRIPTION: CHEST PA/LAT COMPLETED DATE/TIME: 09/18/2017 11:23 am REASON FOR STUDY: sob COMPARISON: None. NUMBER OF VIEWS: Two view. TECHNIQUE: Frontal and lateral radiographic views of the chest acquired. LIMITATIONS: None. FINDINGS: LUNGS AND PLEURA: No opacities, masses or pneumothorax. No pleural effusion. Attenuated bl ood vessels and flattened phil-diaphragms. MEDIASTINUM AND HILAR STRUCTURES: No masses. No contour abnormalities. HEART AND VASCULAR STRUCTURES: Heart normal in size and contour. No evidence for failure. BONES: No acute findings. Osteoporotic HARDWARE: None in the chest. OTHER: No other significant finding. IMPRESSION: COPD. NO ACUTE RADIOGRAPHIC FINDING IN THE CHEST. TECHNICAL DOCUMENTATION: JOB ID: [id number] [employer]- All Rights Reserved
[2017-09-18 11:48] LABS: APPEARANCE,URINE CLEAR; BILIRUBIN,URINE NEGATIVE (NEGATIVE); COLOR,URINE YELLOW; GLUCOSE, URINE NEGATIVE (NEGATIVE); KETONES,URINE NEGATIVE (NEGATIVE); LEUKOCYTE ESTERASE,URINE NEGATIVE (NEGATIVE); NITRITE,URINE NEGATIVE (NEGATIVE); PROTEIN,URINE NEGATIVE (NEGATIVE); URINE SPECIFIC GRAVITY 1.005
[2017-09-18 11:49] LABS: ALANINE AMINOTRANSFERASE 18 U/L (9-52); ALBUMIN 4.6 g/dL (3.5-5.0); ALKALINE PHOSPHATASE 49 U/L (38-126); ANION GAP 14 (5-19); ASPARTATE AMINO TRANSFERASE 23 U/L (14-36); BILIRUBIN,DIRECT 0.1 mg/dL (0.0-0.4); BILIRUBIN,TOTAL 0.7 mg/dL (0.2-1.3); BLOOD UREA NITROGEN 10 mg/dL (7-20); CALCIUM 10.6 mg/dL (8.4-10.2); CARBON DIOXIDE 21 mmol/L (22-30); CHLORIDE 108 mmol/L (98-107); GLUCOSE 94 mg/dL (75-110); SODIUM 142.7 mmol/L (137-145); TOTAL PROTEIN 6.7 g/dL (6.3-8.2)
--- NOTE | 2017-09-18 12:06 | ER Document Report ---
ED General - General Chief Complaint: Shortness Of Breath Stated Complaint: SHORTNESS OF BREATH Time Seen by Provider: 09/18/17 10:42 Mode of Arrival: Wheelchair Information source: Patient Notes: 86-year-old female presents with complaints of shortness of breath and constipation. Patient notes the symptoms have been intermittent for months, notes she had a recent GI evaluation was noted to be normal, patient does have a history of anxiety and did not take her clonazepam today. She is noted to be breathing with no difficulty and is able to speak extensively with no stopping and no complaints Patient notes the shortness of breath occurred this morning when she was trying to have her bowel movement and she felt shaky TRAVEL OUTSIDE OF THE [place] IN LAST 30 DAYS: No - HPI Onset: Just prior to arrival Onset/Duration: Sudden Quality of pain: No pain Severity: Mild Pain Level: Denies Associated symptoms: Shortness of breath Exacerbated by: Denies Relieved by: Denies Similar symptoms previously: Yes Recently seen / treated by doctor: Yes - Related Data Allergies/Adverse Reactions: No Known Allergies Allergy (Verified 08/31/17 11:24) Past Medical History - General Information source: Patient, Relative - Social History Smoking Status: Never Smoker Cigarette use (# per day): No Chew tobacco use (# tins/day): No Smoking Education Provided: No Frequency of alcohol use: None Drug Abuse: None Family History: Reviewed & Not Pertinent Patient has suicidal ideation: No Patient has homicidal ideation: No Pulmonary Medical History: Reports: Hx Asthma, Hx COPD Renal/ Medical History: Denies: Hx Peritoneal Dialysis GI Medical History: Reports: Hx Gastroesophageal Reflux Disease Musculoskeltal Medical History: Reports Hx Arthritis Psychiatric Medical History: Reports: Hx Anxiety Past Surgical History: Reports: Hx Appendectomy, Hx Cholecystectomy, Hx Gynecologic Surgery - ex lap fibroidectomy, Hx Hysterectomy, Hx Orthopedic Surgery - l knee meniscal - Immunizations Hx Diphtheria, Pertussis, Tetanus Vaccination: Yes Review of Systems - Review of Systems Notes: REVIEW OF SYSTEMS: CONSTITUTIONAL : Denies fever, chills, or sweats. Denies recent illness. EENT: Denies eye, ear, throat, or mouth pain or symptoms. Denies nasal or sinus congestion or discharge. Denies throat, tongue, or mouth swelling or difficulty swallowing. CARDIOVASCULAR: Denies chest pain. Denies palpitations or racing or irregular heart beat. Denies ankle edema. RESPIRATORY: Admits to shortness of breath GASTROINTESTINAL: Denies abdominal pain or distention. Denies nausea, vomiting , or diarrhea. Denies blood in vomitus, stools, or per rectum. Denies black, tarry stools. Denies constipation. GENITOURINARY: Denies difficulty urinating, painful urination, burning, frequency, blood in urine, or discharge. FEMALE GENITOURINARY: Denies vaginal bleeding, heavy or abnormal periods, irregular periods. Denies vaginal discharge or odor. MUSCULOSKELETAL: Denies back or neck pain or stiffness. Denies joint pain or swelling. SKIN: Denies rash, lesions or sores. HEMATOLOGIC : Denies easy bruising or bleeding. LYMPHATIC: Denies swollen, enlarged glands. NEUROLOGICAL: Denies confusion or altered mental status. Denies passing out or loss of consciousness. Denies dizziness or lightheadedness. Denies headache. Denies weakness or paralysis or loss of use of either side. Denies problems with gait or speech. Denies sensory loss, numbness, or tingling. Denies seizures. PSYCHIATRIC: Anxious ALL OTHER SYSTEMS REVIEWED AND NEGATIVE. PHYSICAL EXAMINATION: GENERAL: Well-appearing, well-nourished and in no acute distress. HEAD: Atraumatic, normocephalic. EYES: Pupils equal round and reactive to light, extraocular movements intact, conjunctiva are normal. ENT: Nares patent, oropharynx clear without exudates. Moist mucous membranes. NECK: Normal range of motion, supple without lymphadenopathy LUNGS: Breath sounds clear to auscultation bilaterally and equal. No wheezes rales or rhonchi. HEART: Regular rate and rhythm without murmurs ABDOMEN: Soft, nontender, nondistended abdomen. No guarding, no rebound. No masses appreciated. Female : deferred Musculoskeletal: Normal range of motion, no pitting or edema. No cyanosis. NEUROLOGICAL: Cranial nerves grossly intact. Normal speech, normal gait. Normal sensory, motor exams PSYCH: Extremely anxious. SKIN: Warm, Dry, normal turgor, no rashes or lesions noted. Dictation was performed using [employer] recognition software Physical Exam - Vital signs Vitals: Pulse Resp BP Pulse Ox 83 18 105/54 L 99 09/18/17 10:34 09/18/17 10:34 09/18/17 10:34 02/23/18 10:34 Course - Re-evaluation Re-evalutation: 09/18/17 14:18 Patient's examination is quite benign, there is mild COPD exacerbation noted otherwise she looks well and I believe anxiety has a lot to do with her presentation workup otherwise was benign she is satting 100% on room air in no pain After performing a Medical Screening Examination, I estimate there is LOW risk for ACUTE CORONARY SYNDROME, PULMONARY EMBOLI, RESPIRATORY FAILURE, SEPSIS OR MENINGITIS, thus I consider the discharge disposition reasonable. I have reevaluated this patient multiple times and no significant life threatening changes are noted. The patient and I have discussed the diagnosis and risks, and we agree with discharging home with close follow-up. We also discussed returning to the Emergency Department immediately if new or worsening symptoms occur. We have discussed the symptoms which are most concerning (e.g., changing or worsening pain, trouble swallowing or breathing, neck stiffness, fever) that necessitate immediate return. - Vital Signs Vital signs: Temp Pulse Resp BP Pulse Ox 98.1 F 81 18 100/57 L 97 09/18/17 12:00 09/18/17 12:21 09/18/17 12:21 09/18/17 12:21 09/18/17 12:21 - Laboratory Result Diagrams: 09/18/17 11:03 09/18/17 11:03 Laboratory results interpreted by me: 09/18/17 09/18/17 11:03 11:27 Chloride 108 H Carbon Dioxide 21 L Calcium 10.6 H Urine Urobilinogen 4.0 H - Diagnostic Test Radiology reviewed: Image reviewed, Reports reviewed Discharge - Discharge Clinical Impression: Anxiety COPD (chronic obstructive pulmonary disease) Qualifiers: COPD type: unspecified COPD Qualified Code(s): J44.9 - Chronic obstructive pulmonary disease, unspecified Condition: Stable Disposition: HOME, SELF-CARE Instructions: Chronic Obstructive Lung Disease ([facility]) Referrals: JEAN CARLOS CURRY MD [Primary Care Provider] - Follow up tomorrow
[2017-09-18 12:22] VITALS: BP 100/57
== END 2017-09-18 12:22 | disposition home or self-care (01) ==
LOC: ER 10:23
DX: J44.9 Chronic obstructive pulmonary disease, unspecified (principal); F41.9 Anxiety disorder, unspecified; R06.02 Shortness of breath; K59.00 Constipation, unspecified; Z79.899 Other long term (current) drug therapy
CPT/HCPCS: 36415; 71046; 80053; 81001; 85025; 99285

== ENCOUNTER 2017-10-19 18:28 | Emergency (ER) | payer MEDICARE, BC ==
--- NOTE | 2017-10-19 20:17 | ER Document Report ---
ED Medical Screen (RME) - General Chief Complaint: Rash Stated Complaint: POSSIBLE ALLERGIC REACTION Time Seen by Provider: 10/19/17 20:15 Notes: Patient presents with multiple complaints that include being depressed. She feels that her throat is raw, she feels she is having a reaction to her psychiatric medications, she also feels weak and lightheaded. TRAVEL OUTSIDE OF THE [place] IN LAST 30 DAYS: No - Related Data Allergies/Adverse Reactions: amoxicillin [From Augmentin] Allergy (Verified 10/19/17 18:34) clavulanic acid [From Augmentin] Allergy (Verified 10/19/17 18:34) erythromycin base Allergy (Verified 10/19/17 18:34) Past Medical History Pulmonary Medical History: Reports: Hx Asthma, Hx COPD Renal/ Medical History: Denies: Hx Peritoneal Dialysis GI Medical History: Reports: Hx Gastroesophageal Reflux Disease Musculoskeltal Medical History: Reports Hx Arthritis Psychiatric Medical History: Reports: Hx Anxiety Past Surgical History: Reports: Hx Appendectomy, Hx Cholecystectomy, Hx Gynecologic Surgery - ex lap fibroidectomy, Hx Hysterectomy, Hx Orthopedic Surgery - l knee meniscal - Immunizations Hx Diphtheria, Pertussis, Tetanus Vaccination: Yes Physical Exam - Vital signs Vitals: Temp Pulse Resp BP Pulse Ox 98.0 F 75 18 148/85 H 99 10/19/17 18:52 10/19/17 18:52 10/19/17 18:52 10/19/17 18:52 10/19/17 18:52 Course - Vital Signs Vital signs: Temp Pulse Resp BP Pulse Ox 98.0 F 75 18 148/85 H 99 10/19/17 18:52 10/19/17 18:52 10/19/17 18:52 10/19/17 18:52 10/19/17 18:52
[2017-10-19 22:17] LABS: ABSOLUTE BASOPHILS # (AUTO) 0.1 10^3/uL (0.0-0.2); ABSOLUTE LYMPHOCYTES (AUTO) 1.5 10^3/uL (0.5-4.7); ABSOLUTE MONOCYTES (AUTO) 0.3 10^3/uL (0.1-1.4); ABSOLUTE NEUT (AUTO) 2.6 10^3/uL (1.7-8.2); BASOPHILS % (AUTO) 1.4 % (0-2); EOSINOPHILS % (AUTO) 0.7 % (0-6); HEMATOCRIT 41.8 % (36.0-47.0); HEMOGLOBIN 13.9 g/dL (12.0-15.5); LYMPHOCYTES % (AUTO) 32.8 % (13-45); MEAN CORPUSCULAR HGB CONC 33.2 g/dL (32.0-36.0); MEAN CORPUSCULAR VOLUME 87 fl (80-97); MONOCYTES % (AUTO) 7.4 % (3-13); PLATELET COUNT 228 10^3/uL (150-450); RED BLOOD COUNT 4.78 10^6/uL (3.72-5.28); RED CELL DISTRIBUTION WIDTH 13.6 % (11.5-14.0); SEGMENTED NEUTROPHILS % (AUTO) 57.7 % (42-78); TOTAL CELLS COUNTED % (AUTO) 100 %; WHITE BLOOD COUNT 4.6 10^3/uL (4.0-10.5)
[2017-10-19 22:18] LABS: APPEARANCE,URINE CLEAR; BILIRUBIN,URINE NEGATIVE (NEGATIVE); COLOR,URINE STRAW; GLUCOSE, URINE NEGATIVE (NEGATIVE); KETONES,URINE NEGATIVE (NEGATIVE); LEUKOCYTE ESTERASE,URINE NEGATIVE (NEGATIVE); NITRITE,URINE NEGATIVE (NEGATIVE); PROTEIN,URINE NEGATIVE (NEGATIVE); URINE SPECIFIC GRAVITY 1.005; UROBILINOGEN,URINE NEGATIVE mg/dL (<2.0)
[2017-10-19 22:30] LABS: ALANINE AMINOTRANSFERASE 25 U/L (9-52); ALBUMIN 4.5 g/dL (3.5-5.0); ALKALINE PHOSPHATASE 52 U/L (38-126); ANION GAP 9 (5-19); ASPARTATE AMINO TRANSFERASE 24 U/L (14-36); BILIRUBIN,DIRECT 0.1 mg/dL (0.0-0.4); BILIRUBIN,TOTAL 0.5 mg/dL (0.2-1.3); BLOOD UREA NITROGEN 15 mg/dL (7-20); CALCIUM 10.1 mg/dL (8.4-10.2); CARBON DIOXIDE 30 mmol/L (22-30); CHLORIDE 104 mmol/L (98-107); GLUCOSE 82 mg/dL (75-110); POTASSIUM 3.8 mmol/L (3.6-5.0); SODIUM 142.6 mmol/L (137-145); TOTAL PROTEIN 6.9 g/dL (6.3-8.2)
--- NOTE | 2017-10-19 23:00 | ER Document Report ---
ED General - General Chief Complaint: Rash Stated Complaint: POSSIBLE ALLERGIC REACTION Time Seen by Provider: 10/19/17 20:15 TRAVEL OUTSIDE OF THE [place]. IN LAST 30 DAYS: No - HPI Patient complains to provider of: Patient rash Notes: Patient resting comfortably upon my evaluation when asked the reasoning for the patient to come to the ER tontiffanie patient states that she had nothing else to do. Patient dense structure list of a number of complaints I did redirect the patient is to her primary complaint when she states was her facial rash. Patient coming in for evaluation of a facial rash. States ongoing for the last 48 hours. Patient states she is on multiple psychiatric medications with multiple changes to her knowledge her psychiatric medication also her other medications and thinks that 1 of these is may be causing the rash to her face. States last medication change states that she has multiple allergies and is concerned this is what was causing the rash to her face. Denies any fevers chills nausea vomiting. Was a few weeks ago. - Related Data Allergies/Adverse Reactions: amoxicillin [From Augmentin] Allergy (Verified 10/19/17 18:34) clavulanic acid [From Augmentin] Allergy (Verified 10/19/17 18:34) erythromycin base Allergy (Verified 10/19/17 18:34) Past Medical History - Social History Smoking Status: Never Smoker Family History: Reviewed & Not Pertinent Patient has suicidal ideation: No Patient has homicidal ideation: No Pulmonary Medical History: Reports: Hx Asthma, Hx COPD Renal/ Medical History: Denies: Hx Peritoneal Dialysis GI Medical History: Reports: Hx Gastroesophageal Reflux Disease Musculoskeltal Medical History: Reports Hx Arthritis Psychiatric Medical History: Reports: Hx Anxiety Past Surgical History: Reports: Hx Appendectomy, Hx Cholecystectomy, Hx Gynecologic Surgery - ex lap fibroidectomy, Hx Hysterectomy, Hx Orthopedic Surgery - l knee meniscal - Immunizations Hx Diphtheria, Pertussis, Tetanus Vaccination: Yes Review of Systems - Review of Systems Constitutional: Other - facial rash EENT: No symptoms reported Cardiovascular: No symptoms reported Respiratory: No symptoms reported Gastrointestinal: No symptoms reported Genitourinary: No symptoms reported Female Genitourinary: No symptoms reported Musculoskeletal: No symptoms reported Skin: No symptoms reported Hematologic/Lymphatic: No symptoms reported Neurological/Psychological: No symptoms reported -: Yes All other systems reviewed and negative Physical Exam - Vital signs Vitals: Temp Pulse Resp BP Pulse Ox 98.0 F 75 18 148/85 H 99 10/19/17 18:52 10/19/17 18:52 10/19/17 18:52 10/19/17 18:52 10/19/17 18:52 Interpretation: Normal - General General appearance: Appears well, Alert - HEENT Head: Normocephalic, Atraumatic, Other - Nondescript erythema underneath the inferior orbits and redness to the right side of the nose there is blistering no open lesions no signs of zoster no intraoral lesions no mucosal lesions Eyes: Normal Pupils: PERRL - Respiratory Respiratory status: No respiratory distress Chest status: Nontender Breath sounds: Normal Chest palpation: Normal - Cardiovascular Rhythm: Regular Heart sounds: Normal auscultation Murmur: No - Abdominal Inspection: Normal Distension: No distension Bowel sounds: Normal Tenderness: Nontender Organomegaly: No organomegaly - Back Back: Normal, Nontender - Extremities General upper extremity: Normal inspection, Nontender, Normal color, Normal ROM , Normal temperature General lower extremity: Normal inspection, Nontender, Normal color, Normal ROM , Normal temperature, Normal weight bearing. No: Aydin's sign - Neurological Neuro grossly intact: Yes Cognition: Normal Orientation: AAOx4 [place] Coma Scale Eye Opening: Spontaneous [place] Coma Scale Verbal: Oriented Andreia Coma Scale Motor: Obeys Commands [place] Coma Scale Total: 15 Speech: Normal Motor strength normal: LUE, RUE, LLE, RLE Sensory: Normal - Psychological Associated symptoms: Normal affect, Normal mood - Skin Skin Temperature: Warm Skin Moisture: Dry Skin Color: Normal Course - Re-evaluation Re-evalutation: 10/19/17 23:42 Patient at this time with nondescript facial rash. Did explain to the patient at this time does not look to have an emergent rash laboratory studies not show any significant pathology is encouraged patient follow-up with her primary care physician and psychiatric provider. Patient states difficulty in obtaining these appointments I will give her information to our social and political studies professor to assist in making follow-up appointments. - Vital Signs Vital signs: Temp Pulse Resp BP Pulse Ox 97.7 F 70 16 129/69 H 98 10/19/17 23:06 10/19/17 23:06 10/19/17 23:06 10/19/17 23:06 10/19/17 23:06 - Laboratory Result Diagrams: 10/19/17 21:15 10/19/17 21:15 Discharge - Discharge Clinical Impression: Facial rash Disposition: HOME, SELF-CARE Additional Instructions: your examination tonight does not show any critical etiology for the rash of her face. Highly recommend following up with your primary care physician and your psychiatric provider for review her medications. Recommend taking a small amount of Benadryl feel like to help out with your rash she also may apply lotion such as Eucerin to your face. Return to ER symptoms worsen follow-up with your primary care provider. I will give you information to our social and political studies professor to aid with establishing you an appointment Referrals: JEAN CARLOS CURRY MD [Primary Care Provider] - Follow up as needed
[2017-10-19 23:12] VITALS: BP 129/69
== END 2017-10-19 23:12 | disposition home or self-care (01) ==
LOC: ER 18:28
DX: R21 Rash and other nonspecific skin eruption (principal); J44.9 Chronic obstructive pulmonary disease, unspecified
CPT/HCPCS: 36415; 80053; 81001; 85025; 99283

== ENCOUNTER → 2018-01-22 | Outpatient (CLI) | payer MEDICARE, BC ==
--- NOTE | 2018-01-22 09:00 | RADIOLOGY REPORT (SQ) ---
EXAM DESCRIPTION: CT HEAD COMBO COMPLETED DATE/TIME: 01/22/2018 8:36 am REASON FOR STUDY: HEADACHES R51 HEADACHE COMPARISON: MRI brain without and with contrast 11/24/2016 CT brain without contrast 11/24/2016 TECHNIQUE: Axial images acquired through the brain without and with intravenous contrast. Images re viewed with bone, brain and subdural windows. Additional sagittal and coronal reconstructions were g enerated. Images stored on PACS. All CT scanners at this facility use dose modulation, iterative reconstruction, and/or weight based d osing when appropriate to reduce radiation dose to as low as reasonably achievable (ALARA). [facility]: Dose Right [facility]: CareDose [facility]: Dose Right [facility]: Teradose 4D [facility]: Needcheck CONTRAST TYPE AND DOSE: contrast/concentration: Isovue 370.00 mg/ml; Total Contrast Delivered: 50.0 ml; Total Saline Delivered: 50.0 ml RENAL FUNCTION: Creatinine 0.8 RADIATION DOSE: CT Rad equipment meets quality standard of care and radiation dose reduction techniq ues were employed. CTDIvol: 53.2 mGy. DLP: 2141 mGy-cm.. LIMITATIONS: None. FINDINGS: VENTRICLES: Normal size and contour. CEREBRUM: No masses. No hemorrhage. No midline shift. Normal wright/white matter differentiation. No ev idence for acute infarction. No enhancing lesions. CEREBELLUM: No masses. No hemorrhage. No alteration of density. No evidence for acute infarction. No enhancing lesions. EXTRA-AXIAL SPACES: No fluid collections. No enhancing lesions. ORBITS AND GLOBE: No intra- or extraconal masses. 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 Normal contour of globe without masses. CALVARIUM: No fracture. PARANASAL SINUSES: No fluid or mucosal thickening. SOFT TISSUES: No mass or hematoma. OTHER: No other significant finding. IMPRESSION: NORMAL BRAIN CT WITHOUT AND WITH CONTRAST. EVIDENCE OF ACUTE STROKE: NO. TECHNICAL DOCUMENTATION: JOB ID: [id number] Quality ID # [id number]: Final reports with documentation of one or more dose reduction techniques (e.g., Au tomated exposure control, adjustment of the mA and/or kV according to patient size, use of iterative reconstruction technique) 2010 [employer]- All Rights Reserved Reading location - IP/workstation name: [email or web address]
== END ==
LOC: RAD 07:52
PROVIDERS: ATTEND Internal Medicine
DX: R51 Headache (principal)
CPT/HCPCS: 70470; 82565

== ENCOUNTER → 2018-02-01 | Outpatient (CLI) | payer MEDICARE, BC ==
--- NOTE | 2018-02-02 18:54 | WOMENS IMAGING REPORT ---
EXAM DESCRIPTION: BILAT SCREENING MAMMO W/CAD COMPLETED DATE/TIME: 02/01/2018 2:52 pm REASON FOR STUDY: BILATERAL MAMMO SCREENING/Z12.31 Z12.31 ENCNTR SCREEN MAMMOGRAM FOR MALIGNANT ROSELIA PLASM OF [place] COMPARISON: 2016 TECHNIQUE: Standard craniocaudal and mediolateral oblique views of each breast recorded using SSEVa l acquisition. LIMITATIONS: None. FINDINGS: No masses, calcifications or architectural distortion. No areas of suspicion. Read with the assistance of CAD. .[facility] - R2 Cenova Version 1.3 .[facility] Imaging - R2 Cenova Version 1.3 .[facility] - R2 Cenova Version 2.4 .[facility] [place]2 Cenova Version 2.4 .[facility] - R2 Development Analyst Version 9.2 IMPRESSION: NORMAL MAMMOGRAM. BIRADS 1. BREAST DENSITY: c. The breasts are heterogeneously dense, which may obscure small masses. BIRAD: 1 NEGATIVE RECOMMENDATION: ROUTINE SCREENING COMMENT: The patient has been notified of the results by letter per SA requirements. Additional no tification policies are in place for contacting patient with suspicious or incomplete findings. Quality ID #[id number]: The [employer] recommends an annual screening mammogram for women aged 40 years or over. This facility utilizes a reminder system to ensure that all patients receive reminder letters, and/or direct phone calls for appointments. This includes reminders for routine scr eening mammograms, diagnostic mammograms, or other Breast Imaging Interventions when appropriate. Th is patient will be placed in the appropriate reminder system. The [employer] (ACR) has developed recommendations for screening MRI of the breast s in certain patient populations, to be used in conjunction with mammography. Breast MRI surveillanc e may be appropriate for women with more than 20% lifetime risk of developing breast cancer as deter mined by genetic testing, significant family history of the disease, or history of mantle radiation f or Hodgkins Disease. ACR Practice Guidelines 2008. TECHNICAL DOCUMENTATION: FINDING NUMBER: (1) ASSESSMENT: (1) JOB ID: [id number] [employer]- All Rights Reserved Reading location - IP/workstation name: [email or web address]
== END ==
LOC: WI 14:18
PROVIDERS: ATTEND Internal Medicine
DX: Z12.31 Encounter for screening mammogram for malignant neoplasm of breast (principal)
CPT/HCPCS: 77067

== ENCOUNTER 2018-02-06 04:48 | Emergency (ER) | payer OTHER, MEDICARE, BC ==
[2018-02-06] MEDS ORDERED: ACETAMINOPHEN 325 MG TABLET PO ONE (05:28)
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
--- NOTE | 2018-02-06 07:02 | RADIOLOGY REPORT (SQ) ---
EXAM DESCRIPTION: CT CERVICAL SPINE WITHOUT IV CONTRAST COMPLETED DATE/TME: 02/06/2018 05:27 CLINICAL HISTORY: Trauma/pain COMPARISON: None available TECHNIQUE: Axial CT of the cervical spine obtained without contrast. FINDINGS: Alignment of the cervical spine is maintained without evidence of subluxation. The atlantoaxial, atlantodental, and occipitoatlantal intervals are preserved. No fracture identified. Vertebral body height preserved. Prevertebral soft tissues are unremarkable. Multilevel moderate to severe loss of intervertebral disc height with endplate spondylosis and facet arthropathy throughout the visualized cervical spine. Degenerative spurring of the atlantodental articulation. Osteopenia. Mild multilevel osseous neural foraminal narrowing. No definite central canal osseous narrowing. Visualized skull base is intact. No fracture of the visualized facial bones. Visualized mastoid air cells and paranasal sinuses are well aerated. Visualized thyroid is unremarkable. No cervical lymphadenopathy. No pneumothorax in the visualized lung apices. Atherosclerotic vascular calcification. DLP: 233.40 mGy-cm IMPRESSION: 1. No acute fracture or subluxation of the cervical spine. 2. 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
[2018-02-06] MEDS ORDERED: LIDOCAINE 5% (700 MG) TRANSDERMAL ADH..PATCH TP ONE (08:35)
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
[2018-02-06 09:07] VITALS: BP 137/67
== END 2018-02-06 09:13 | disposition home or self-care (01) ==
LOC: ER 04:48
DX: M54.2 Cervicalgia (principal); V49.50XA Passenger injured in collision with unspecified motor vehicles in traffic accident, initial encounter; J44.9 Chronic obstructive pulmonary disease, unspecified; Z88.0 Allergy status to penicillin; Z88.1 Allergy status to other antibiotic agents
CPT/HCPCS: 99284; 72125; L0172; L0120

== ENCOUNTER 2018-11-11 13:15 | Emergency (ER) | payer MEDICARE, BC ==
--- NOTE | 2018-11-11 13:54 | ER Document Report ---
ED Medical Screen (RME) - General Chief Complaint: Constipation Stated Complaint: CONSTIPATION Time Seen by Provider: 11/11/18 13:53 Primary Care Provider: JEAN CARLOS CURRY MD [Primary Care Provider] - Follow up as needed Mode of Arrival: Ambulatory Information source: Patient Notes: 87-year-old female presents to ED for complaint of constant chronic either con stipation or diarrhea or both. She states that started the beginning of the year and she states she also has bad reflux and burning in her throat. She states she has a GI doctor that she has been to and wants to do an endoscopy but when they did the last endoscopy she had worse pain. She states she was told to take MiraLAX but that does not work. States that her doctor put her on another medication does not work in either. Patient does have hyperactive bowel sounds. She states she is here for the pain and not being able to go to the bathroom. She states she also has been incontinent of urine for years. Patient is alert oriented lungs are clear to auscultation at this time. I have greeted and performed a rapid initial assessment of this patient. A comprehensive ED assessment and evaluation of the patient, analysis of test results and completion of medical decision making process will be conducted by an additional ED providers. TRAVEL OUTSIDE OF THE [place] IN LAST 30 DAYS: No - Related Data Allergies/Adverse Reactions: amoxicillin [From Augmentin] Allergy (Verified 11/11/18 13:17) cefoxitin Allergy (Verified 11/11/18 13:20) clavulanic acid [From Augmentin] Allergy (Verified 11/11/18 13:17) erythromycin base Allergy (Verified 11/11/18 13:17) Past Medical History Pulmonary Medical History: Reports: Hx Asthma, Hx COPD Renal/ Medical History: Denies: Hx Peritoneal Dialysis GI Medical History: Reports: Hx Gastroesophageal Reflux Disease Musculoskeltal Medical History: Reports Hx Arthritis Psychiatric Medical History: Reports: Hx Anxiety Past Surgical History: Reports: Hx Appendectomy, Hx Cholecystectomy, Hx Gynecologic Surgery - ex lap fibroidectomy, Hx Hysterectomy, Hx Orthopedic Surgery - l knee meniscal - Immunizations Hx Diphtheria, Pertussis, Tetanus Vaccination: Yes Doctor's Discharge - Discharge Referrals: JEAN CARLOS CURRY MD [Primary Care Provider] - Follow up as needed
--- NOTE | 2018-11-11 14:47 | RADIOLOGY REPORT (SQ) ---
EXAM DESCRIPTION: ACUTE ABDOMEN SERIES COMPLETED DATE/TIME: 11/11/2018 2:30 pm REASON FOR STUDY: Abdominal pain/constipation chronic COMPARISON: 11/24/2016 NUMBER OF VIEWS: Three views. TECHNIQUE: Frontal chest, supine abdomen and upright/decubitus abdomen radiographic images acquired. LIMITATIONS: None. FINDINGS: CHEST: Hyperexpansion of the lungs. No infiltrate or effusion. No mass. FREE AIR: None. No abnormal gas collections. BOWEL GAS PATTERN: Nonobstructive pattern. Considerable stool. CALCIFICATIONS: No suspicious calcifications. HARDWARE: None in the abdomen. SOFT TISSUES: No gross mass or suggestion of organomegaly. BONES: No acute fracture. No worrisome bone lesions. OTHER: No other significant finding. IMPRESSION: Chronic lung changes. Constipation. TECHNICAL DOCUMENTATION: JOB ID: [id number] [employer]- All Rights Reserved Reading location - IP/workstation name: [email or web address]
[2018-11-11 15:29] LABS: APPEARANCE,URINE CLEAR; BILIRUBIN,URINE NEGATIVE (NEGATIVE); COLOR,URINE YELLOW; GLUCOSE, URINE NEGATIVE (NEGATIVE); KETONES,URINE NEGATIVE (NEGATIVE); LEUKOCYTE ESTERASE,URINE NEGATIVE (NEGATIVE); NITRITE,URINE NEGATIVE (NEGATIVE); PROTEIN,URINE NEGATIVE (NEGATIVE); URINE SPECIFIC GRAVITY 1.012; UROBILINOGEN,URINE NEGATIVE mg/dL (<2.0)
[2018-11-11] MEDS ORDERED: ONDANSETRON 4 MG TAB.RAPDIS PO ONE (17:42)
--- NOTE | 2018-11-11 19:36 | ER Document Report ---
ED General - General Chief Complaint: Constipation Stated Complaint: CONSTIPATION Time Seen by Provider: 11/11/18 13:53 Primary Care Provider: JEAN CARLOS CURRY MD [Primary Care Provider] - Follow up as needed Mode of Arrival: Ambulatory Notes: 87-year-old female presents to ED for complaint of constant chronic either constipation or diarrhea or both. She states that started the beginning of the year and she states she also has bad reflux and burning in her throat. She states she has a GI doctor that she has been to and wants to do an endoscopy but when they did the last endoscopy she had worse pain. She states she was told to take MiraLAX but that does not work. States that her doctor put her on another medication does not work in either. She states she is here for the pain and not being able to go to the bathroom. She states she also has been incontinent of urine for years. Patient is alert oriented lungs are clear to auscultation at this time. Patient is a broad multitude of complaints that she states have been ongoing for years and are not new or different today. She admits to being very anxious, not sleeping well but continues to decline taking any kind of p sychiatric medications as she is worried about side effects. She also states that she is nervous even eat bran cereal feeling that this could make her symptoms worse. She has not noted that anything seems to directly impact her symptoms, feels that none of the medications that have been utilized by her physician or GI doctor have made her symptoms better. TRAVEL OUTSIDE OF THE [place] IN LAST 30 DAYS: No - Related Data Allergies/Adverse Reactions: amoxicillin [From Augmentin] Allergy (Verified 11/11/18 13:17) cefoxitin Allergy (Verified 11/11/18 13:20) clavulanic acid [From Augmentin] Allergy (Verified 11/11/18 13:17) erythromycin base Allergy (Verified 11/11/18 13:17) Past Medical History - General Information source: Patient - Social History Smoking Status: Never Smoker Frequency of alcohol use: None Drug Abuse: None Lives with: Family Family History: Reviewed & Not Pertinent Patient has suicidal ideation: No Patient has homicidal ideation: No Pulmonary Medical History: Reports: Hx Asthma, Hx COPD Renal/ Medical History: Denies: Hx Peritoneal Dialysis GI Medical History: Reports: Hx Gastroesophageal Reflux Disease Musculoskeletal Medical History: Reports Hx Arthritis Psychiatric Medical History: Reports: Hx Anxiety Past Surgical History: Reports: Hx Appendectomy, Hx Cholecystectomy, Hx Gyneco logic Surgery - ex lap fibroidectomy, Hx Hysterectomy, Hx Orthopedic Surgery - l knee meniscal - Immunizations Hx Diphtheria, Pertussis, Tetanus Vaccination: Yes Review of Systems - Review of Systems Notes: Constitutional: Negative for fever. HENT: Negative for sore throat. Eyes: Negative for visual changes. Cardiovascular: Negative for chest pain. Respiratory: Negative for shortness of breath. Gastrointestinal: Positive for abdominal cramping, nausea, diarrhea isolated with constipation Genitourinary: Negative for dysuria. Musculoskeletal: Negative for back pain. Skin: Negative for rash. Neurological: Negative for headaches, weakness or numbness. 10 point ROS negative except as marked above and in HPI. Physical Exam - Vital signs Vitals: Temp Pulse Resp BP Pulse Ox 97.5 F 85 14 104/53 L 97 11/11/18 13:31 11/11/18 13:31 11/11/18 13:31 11/11/18 13:31 11/11/18 13:31 Interpretation: Normal Notes: PHYSICAL EXAMINATION: GENERAL: Well-appearing, well-nourished and in no acute distress. HEAD: Atraumatic, normocephalic. EYES: Pupils equal round and reactive to light, extraocular movements intact, sclera anicteric, conjunctiva are normal. ENT: nares patent, oropharynx clear without exudates. Moist mucous membranes. NECK: Normal range of motion, supple without lymphadenopathy LUNGS: Breath sounds clear to auscultation bilaterally and equal. No wheezes rales or rhonchi. HEART: Regular rate and rhythm without murmurs ABDOMEN: Soft, nontender, normoactive bowel sounds. No guarding, no rebound. No masses appreciated. EXTREMITIES: Normal range of motion, no pitting or edema. No cyanosis. NEUROLOGICAL: No focal neurological deficits. Moves all extremities spontaneously and on command. PSYCH: Anxious, tearful SKIN: Warm, Dry, normal turgor, no rashes or lesions noted. Course - Re-evaluation Re-evalutation: 11/11/18 19:34 Patient presents with multiple vague complaints that did not appear to be concerning for any acute life-threatening pathology. Vitals are within normal limits at triage and at time of discharge. Physical examination is unr emarkable. Patient has tolerated oral intake without difficulty. Patient was not noted to be in distress at any point during their ER visit. At this time, based on the reassuring evaluation, I do not suspect an acute AR, pulmonary embolus, aortic dissection, acute intra-abdominal pathology, stroke, or sepsis.symptoms are very consistent with a irritable bowel syndrome picture. Patient has had an extensive evaluation by both her primary care doctor and GI physician. Her symptoms have been going on for greater than 7 years and are not new or different tonight. I do not believe any more advanced medical imaging is indicated today. Acute abdominal series does not demonstrate any evidence of obstruction, perforation, volvulus, does demonstrate marketed constipation. I did emphasize the patient that if she is concerned about using medications to manage her symptoms dietary options such as bran cereal, dried fruits, vegetables are an option but even for the suggestions she has extensive list of reasons why she does not wish to try these stating that she is concerned that these will cause other issues. Will discharge with return precautions and follow-up recommendations. Verbal discharge instructions given a the bedside and opportunity for questions given. Medication warnings reviewed. Patient is in agreement with this plan and has verbalized understanding of return precautions and the need for primary care follow-up in the next 24-72 hours. - Vital Signs Vital signs: Temp Pulse Resp BP Pulse Ox 97.5 F 85 14 104/53 L 97 11/11/18 13:31 11/11/18 13:31 11/11/18 13:31 11/11/18 13:31 11/11/18 13:31 - Laboratory Laboratory results interpreted by me: 11/11/18 14:51 Urine Blood SMALL H Discharge - Discharge Clinical Impression: Abdominal cramping, Nausea Constipation Qualifiers: Constipation type: unspecified constipation type Qualified Code(s): K59.00 - Constipation, unspecified Condition: Good Disposition: HOME, SELF-CARE Additional Instructions: You have been seen in the Emergency Department (ED) for abdominal pain, const ipation, and a multitude of additional symptoms. Your evaluation did not identify a clear cause of your symptoms but was generally reassuring. You need to continue following closely with your primary doctor regarding his concerns. As we discussed I would strongly encourage you to try to manage his symptoms through dietary changes such as eating high-fiber cereals, dried fruits, and plenty of vegetables. Return to the ED if your abdominal pain worsens or fails to improve, you develop bloody vomiting, bloody diarrhea, you are unable to tolerate fluids due to vomiting, fever greater than 101, or other symptoms that concern you. Referrals: JEAN CARLOS CURRY MD [Primary Care Provider] - Follow up as needed
[2018-11-11 20:05] VITALS: BP 153/87
== END 2018-11-11 20:05 | disposition home or self-care (01) ==
LOC: ER 13:15
DX: K59.00 Constipation, unspecified (principal); R10.9 Unspecified abdominal pain; R11.0 Nausea; R19.7 Diarrhea, unspecified; J44.9 Chronic obstructive pulmonary disease, unspecified
CPT/HCPCS: 74022; 81001; 99283

== ENCOUNTER → 2019-02-03 | Outpatient (CLI) | payer MEDICARE, BC ==
--- NOTE | 2019-02-03 15:25 | WOMENS IMAGING REPORT ---
EXAM DESCRIPTION: 3D SCREENING MAMMO BILAT COMPLETED DATE/TIME: 02/03/2019 2:49 pm REASON FOR STUDY: Z12.31 ENCOUNTER FOR SCREENING MAMMOGRAM FOR MALIGNANT NEOPLASM OF BREAST Z12.31 ENCNTR SCREEN MAMMOGRAM FOR MALIGNANT NEOPLASM OF [place] COMPARISON: 2016, 2017 EXAM PARAMETERS: Standard craniocaudal and mediolateral oblique views of each breast recorded using digital acquisition and breast tomosynthesis. Read with the assistance of CAD. .[facility] - ENT Surgical Customer Service Rep Version 9.2 LIMITATIONS: None. FINDINGS: Findings present which are benign by mammographic criteria. No suspicious masses, calcific ations or architectural distortion. Pertinent benign findings: Stable calcifications. Benign mammographic findings may include one or more of the following: Smooth masses, popcorn/rim/coa rse calcifications, asymmetries, post-procedure changes, and lesions with long-standing stability. IMPRESSION: BENIGN MAMMOGRAPHIC FINDINGS. BIRADS 2 BREAST DENSITY: c. The breasts are heterogeneously dense, which may obscure small masses. BIRAD: ASSESSMENT: 2 BENIGN FINDING(S) RECOMMENDATION: ROUTINE SCREENING COMMENT: The patient has been notified of the results by letter per SA requirements. Additional no tification policies are in place for contacting patient with suspicious or incomplete findings. Quality ID #[id number]: The [employer] recommends an annual screening mammogram for women aged 40 years or over. This facility utilizes a reminder system to ensure that all patients receive reminder letters, and/or direct phone calls for appointments. This includes reminders for routine scr eening mammograms, diagnostic mammograms, or other Breast Imaging Interventions when appropriate. Th is patient will be placed in the appropriate reminder system. TECHNICAL DOCUMENTATION: FINDING NUMBER: (1) ASSESSMENT: (1) JOB ID: [id number] [employer]- All Rights Reserved Reading location - IP/workstation name: [email or web address]
== END ==
LOC: WI 14:08
PROVIDERS: ATTEND Internal Medicine
DX: Z12.31 Encounter for screening mammogram for malignant neoplasm of breast (principal)
CPT/HCPCS: 77063; 77067

== ENCOUNTER 2019-02-18 15:43 | Emergency (ER) | payer MEDICARE, BC ==
--- NOTE | 2019-02-18 18:09 | ER Document Report ---
ED Medical Screen (RME) - General Chief Complaint: Chest Pain Stated Complaint: CHEST PAIN Time Seen by Provider: 02/18/19 17:46 Primary Care Provider: JEAN CARLOS CURRY MD [Primary Care Provider] - Follow up as needed TRAVEL OUTSIDE OF THE [place] IN LAST 30 DAYS: No - HPI Notes: 02/18/19 18:06 88 YEAR OLD FEMALE TO THE ED WITH C/O NEEDING "TO HAVE MY HEART CHECKED OUT". STATES THAT SHE WAS TOLD SHE NEEDED TO HAVE HER HEART CHECKED PRIOR TO SEEING HER GI PHYSICIAN, DR. BOLDEN. STATES THAT FOR THE PAST MONTH SHE HAS BEEN HAVING ANTERIOR CHEST PAIN WITH ASSOCIATED SHORTNESS OF BREATH. IT SEEMS WORSE AT NIGHT. STATES THAT SHE FEELS NAUSEATED WITH THIS BUT NEVER VOMITS. DENIES DIAPHORESIS. SHE STATES THAT IT ALSO HURTS TO SWALLOW. STATES THAT SHE IS ON PREVACID. HAD A EGD ONE YEAR AGO. DENIES THAT HER GI PHYSICIAN IS SEEKING CARDIAC CLEARANCE FOR FURTHER PROCEDURES. I PERFORMED A MEDICAL SCREENING EXAM ON THIS PATIENT. GIVEN HER SYMPTOMS, ORDERED CARDIAC LABS WELL CHEST XR AND EKG. WILL HAVE MAINSIDE ER PROVIDER EVALUATE AND MANAGE PATIENT FURTHER. - Related Data Allergies/Adverse Reactions: amoxicillin [From Augmentin] Allergy (Verified 02/18/19 15:50) cefoxitin Allergy (Verified 02/18/19 15:50) clavulanic acid [From Augmentin] Allergy (Verified 02/18/19 15:50) erythromycin base Allergy (Verified 02/18/19 15:50) Past Medical History Pulmonary Medical History: Reports: Hx Asthma, Hx COPD Renal/ Medical History: Denies: Hx Peritoneal Dialysis GI Medical History: Reports: Hx Gastroesophageal Reflux Disease Musculoskeltal Medical History: Reports Hx Arthritis Psychiatric Medical History: Reports: Hx Anxiety Past Surgical History: Reports: Hx Appendectomy, Hx Cholecystectomy, Hx Gynecologic Surgery - ex lap fibroidectomy, Hx Hysterectomy, Hx Orthopedic Surgery - l knee meniscal - Immunizations Hx Diphtheria, Pertussis, Tetanus Vaccination: Yes Physical Exam - Vital signs Vitals: Temp Pulse Resp BP Pulse Ox 98.3 F 73 18 150/76 H 96 02/18/19 16:06 02/18/19 16:06 02/18/19 16:06 02/18/19 16:06 02/18/19 16:06 Course - Vital Signs Vital signs: Temp Pulse Resp BP Pulse Ox 98.3 F 73 18 150/76 H 96 02/18/19 16:06 02/18/19 16:06 02/18/19 16:06 02/18/19 16:06 02/18/19 16:06 Doctor's Discharge - Discharge Referrals: JEAN CARLOS CURRY MD [Primary Care Provider] - Follow up as needed
[2019-02-18 18:44] LABS: ABSOLUTE BASOPHILS # (AUTO) 0.1 10^3/uL (0.0-0.2); ABSOLUTE LYMPHOCYTES (AUTO) 1.4 10^3/uL (0.5-4.7); ABSOLUTE NEUT (AUTO) 3.8 10^3/uL (1.7-8.2); EOSINOPHILS % (AUTO) 0.6 % (0-6); HEMATOCRIT 38.3 % (36.0-47.0); RED BLOOD COUNT 4.44 10^6/uL (3.72-5.28); RED CELL DISTRIBUTION WIDTH 13.4 % (11.5-14.0); TOTAL CELLS COUNTED % (AUTO) 100 %
[2019-02-18 18:48] LABS: ABSOLUTE MONOCYTES (AUTO) 0.5 10^3/uL (0.1-1.4); BASOPHILS % (AUTO) 0.9 % (0-2); HEMOGLOBIN 12.9 g/dL (12.0-15.5); LYMPHOCYTES % (AUTO) 24.8 % (13-45); MEAN CORPUSCULAR HGB CONC 33.7 g/dL (32.0-36.0); MEAN CORPUSCULAR VOLUME 86 fl (80-97); MONOCYTES % (AUTO) 7.9 % (3-13); PLATELET COUNT 256 10^3/uL (150-450); SEGMENTED NEUTROPHILS % (AUTO) 65.8 % (42-78); WHITE BLOOD COUNT 5.8 10^3/uL (4.0-10.5)
[2019-02-18 19:03] LABS: ALANINE AMINOTRANSFERASE 23 U/L (9-52); ALBUMIN 4.4 g/dL (3.5-5.0); ALKALINE PHOSPHATASE 52 U/L (38-126); ANION GAP 8 (5-19); ASPARTATE AMINO TRANSFERASE 30 U/L (14-36); BILIRUBIN,DIRECT 0.3 mg/dL (0.0-0.4); BLOOD UREA NITROGEN 15 mg/dL (7-20); CALCIUM 10.2 mg/dL (8.4-10.2); CARBON DIOXIDE 28 mmol/L (22-30); CHLORIDE 105 mmol/L (98-107); CREATINE KINASE 75 U/L (30-135); GLUCOSE 87 mg/dL (75-110); POTASSIUM 4.4 mmol/L (3.6-5.0); TOTAL PROTEIN 7.3 g/dL (6.3-8.2)
[2019-02-18 19:14] LABS: CREATINE KINASE MB 1.56 ng/mL (<4.55)
[2019-02-18 19:16] LABS: TROPONIN I < 0.012 ng/mL
--- NOTE | 2019-02-18 19:17 | RADIOLOGY REPORT (SQ) ---
EXAM DESCRIPTION: CHEST 2 VIEWS COMPLETED DATE/TIME: 02/18/2019 7:08 pm REASON FOR STUDY: CHEST PAIN, SOB COMPARISON: 09/18/2017 NUMBER OF VIEWS: Two view. TECHNIQUE: Frontal and lateral radiographic views of the chest acquired. LIMITATIONS: None. FINDINGS: LUNGS AND PLEURA: No opacities, masses or pneumothorax. No pleural effusion. Attenuated bl ood vessels and flattened phil-diaphragms. MEDIASTINUM AND HILAR STRUCTURES: No masses. No contour abnormalities. HEART AND VASCULAR STRUCTURES: Heart normal in size and contour. No evidence for failure. BONES: No acute findings. HARDWARE: None in the chest. OTHER: No other significant finding. IMPRESSION: COPD. NO ACUTE RADIOGRAPHIC FINDING IN THE CHEST. TECHNICAL DOCUMENTATION: JOB ID: [id number] [employer]- All Rights Reserved Reading location - IP/workstation name: [email or web address]
[2019-02-18] MEDS ORDERED: LORAZEPAM 0.5 MG TABLET PO ONE (19:36)
--- NOTE | 2019-02-18 19:37 | ER Document Report ---
ED General - General Chief Complaint: Chest Pain Stated Complaint: CHEST PAIN Time Seen by Provider: 02/18/19 17:46 Primary Care Provider: JEAN CARLOS CURRY MD [Primary Care Provider] - Follow up in 3-5 days Mode of Arrival: Ambulatory Information source: Patient, [facility] Records Notes: 88-year-old female with COPD, asthma, GERD presents because she was told by her primary care physician and GI physician that she cannot be seen until she has a cardiac work-up. Patient is very difficult to direct, is a poor historian who continuously talks about all of her 's medical problems. She states that she has had a very tough time recently and has been under a lot of stress due to her 's health. She states that he is undergoing treatment for throat ca ncer. She states that since moving to [place] she has been "miserable", she [place] and has no friends at her age. She is unable to drive because she is very anxious. Patient states that she has had intermittent substernal chest pain for several months which began again this morning. She denies any associated shortness of breath, diaphoresis, lightheadedness. Patient has been directed to see ENT for her persistent sore throat. 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 TRAVEL OUTSIDE OF THE [place] IN LAST 30 DAYS: No - HPI Onset: Other Onset/Duration: Gradual, Intermittent Quality of pain: Achy Severity: Mild Associated symptoms: Chest pain, Nausea. denies: Nonproductive cough, Produ ctive cough, Fever, Headache, Vomiting, Shortness of breath Exacerbated by: Denies Relieved by: Denies Similar symptoms previously: Yes Recently seen / treated by doctor: Yes - Related Data Allergies/Adverse Reactions: amoxicillin [From Augmentin] Allergy (Verified 02/18/19 15:50) cefoxitin Allergy (Verified 02/18/19 15:50) clavulanic acid [From Augmentin] Allergy (Verified 02/18/19 15:50) erythromycin base Allergy (Verified 02/18/19 15:50) Past Medical History - General Information source: Patient - Social History Smoking Status: Never Smoker Chew tobacco use (# tins/day): No Frequency of alcohol use: None Drug Abuse: None Lives with: Spouse/Significant other Family History: Reviewed & Not Pertinent Patient has suicidal ideation: No Patient has homicidal ideation: No Pulmonary Medical History: Reports: Hx Asthma, Hx COPD Renal/ Medical History: Denies: Hx Peritoneal Dialysis GI Medical History: Reports: Hx Gastroesophageal Reflux Disease Musculoskeletal Medical History: Reports Hx Arthritis Psychiatric Medical History: Reports: Hx Anxiety Past Surgical History: Reports: Hx Appendectomy, Hx Cholecystectomy, Hx Gynecologic Surgery - ex lap fibroidectomy, Hx Hysterectomy, Hx Orthopedic Surgery - l knee meniscal - Immunizations Hx Diphtheria, Pertussis, Tetanus Vaccination: Yes Review of Systems - Review of Systems Constitutional: denies: Chills, Weakness, Weight loss, Recent illness EENT: Throat pain. denies: Blurred vision, Difficulty swallowing Cardiovascular: Chest pain. denies: Palpitations, Dizziness, Lightheaded, Edema Respiratory: Cough - Chronic, Wheezing Gastrointestinal: Nausea. denies: Abdominal pain, Vomiting Genitourinary: denies: Dysuria Female Genitourinary: No symptoms reported Musculoskeletal: denies: Leg swelling Skin: denies: Rash Hematologic/Lymphatic: No symptoms reported Neurological/Psychological: Anxiety. denies: Dementia, Weakness, Headaches, Numbness -: Yes All other systems reviewed and negative Physical Exam - Vital signs Vitals: Temp Pulse Resp BP Pulse Ox 98.3 F 73 18 150/76 H 96 02/18/19 16:06 02/18/19 16:06 02/18/19 16:06 02/18/19 16:06 02/18/19 16:06 - Notes Notes: PHYSICAL EXAMINATION: GENERAL: Well-appearing, well-nourished and in no acute distress. HEAD: Atraumatic, normocephalic. EYES: Pupils equal round and reactive to light, extraocular movements intact, conjunctiva are normal. ENT: Nares patent, oropharynx clear without exudates. Moist mucous membranes. NECK: Normal range of motion, supple without lymphadenopathy LUNGS: Breath sounds clear to auscultation bilaterally and equal. No wheezes rales or rhonchi. HEART: Regular rate and rhythm without murmurs ABDOMEN: Soft, nontender, nondistended abdomen. No guarding, no rebound. No masses appreciated. Female : deferred Musculoskeletal: Normal range of motion, no pitting or edema. No cyanosis. NEUROLOGICAL: Cranial nerves grossly intact. Normal speech, normal gait. Normal sensory, motor exams PSYCH: Anxious, hard to direct. SKIN: Warm, Dry, normal turgor, no rashes or lesions noted. Course - Re-evaluation Re-evalutation: 02/18/19 19:41 Laboratory 02/18/19 02/18/19 02/18/19 18:30 18:30 18:30 WBC 5.8 RBC 4.44 Hgb 12.9 Hct 38.3 MCV 86 MCH 29.0 MCHC 33.7 RDW 13.4 Plt Count 256 Seg Neutrophils % 65.8 Lymphocytes % 24.8 Monocytes % 7.9 Eosinophils % 0.6 Basophils % 0.9 Absolute Neutrophils 3.8 Absolute Lymphocytes 1.4 Absolute Monocytes 0.5 Absolute Eosinophils 0.0 Absolute Basophils 0.1 Sodium 141.2 Potassium 4.4 Chloride 105 Carbon Dioxide 28 Anion Gap 8 BUN 15 Creatinine 0.74 Est GFR ( Amer) > 60 Est GFR (Non-Af Amer) > 60 Glucose 87 Calcium 10.2 Total Bilirubin 1.0 Direct Bilirubin 0.3 Neonat Total Bilirubin Not Reportable Neonat Direct Bilirubin Not Reportable Neonat Indirect Bili Not Reportable AST 30 ALT 23 Alkaline Phosphatase 52 Creatine Kinase 75 CK-MB (CK-2) 1.56 Troponin I < 0.012 Total Protein 7.3 Albumin 4.4 Chest X-Ray 02/18/19 18:05 IMPRESSION: COPD. NO ACUTE RADIOGRAPHIC FINDING IN THE CHEST. Temp Pulse Resp BP Pulse Ox 98.3 F 73 18 150/76 H 96 02/18/19 16:06 02/18/19 16:06 02/18/19 16:06 02/18/19 16:06 02/18/19 16:06 88-year-old female presents with chest pain and suggestion from her primary care physician and GI doctor to come to the emergency department for a cardiac work- up. Vital signs reviewed and within normal limits except for mildly elevated blood pressure. Patient does not appear toxic or dehydrated. She is in no acute distress. She is very anxious, hard to direct. She consistently speaks about her 's multiple medical problems. CBC, CMP, cardiac enzymes are within normal limits. 02/18/19 20:11 Presentation of chest pain in an otherwise well appearing patient. Low clinical suspicion for ACS given clinical history, exam, EKG without ST elevations or depressions, and negative initial troponin. HEART score less than or equal to 3. PE also seems unlikely given clinical history, absence of tachycardia or dyspnea. Patient is PERC criteria negative. CXR without evidence of pneumothorax or pneumonia. No widened mediastinum. Aortic dissection also seems unlikely given history, symmetric pulses, CXR, and vitals. HEART Score: History-0 ECG-0 Age-1 Risk Factors-1 Troponin-0 Total: 2 Chest pain in a patient without evidence of cardiac or other serious etiology on workup today. I discussed with patient that, based on their age, risk factors and emergency department testing today, the likelihood that their symptoms are related to a heart attack is very low (estimated risk of heart attack or over the next 30 days of less than 1%). The patient demonstrates decision making capacity and has verbalized an understanding of these risks to me. Based on this, the patient has chosen to follow-up as an outpatient. Usual chest pain return precautions reviewed. The patient states understanding and agreement with this plan. 02/18/19 22:32 - Vital Signs Vital signs: Temp Pulse Resp BP Pulse Ox 97.4 F 63 14 148/82 H 98 02/18/19 21:14 02/18/19 21:14 02/18/19 21:14 02/18/19 21:14 02/18/19 21:14 - Laboratory Result Diagrams: 02/18/19 18:30 02/18/19 18:30 - Diagnostic Test Radiology reviewed: Image reviewed, Reports reviewed - EKG Interpretation by Me EKG shows normal: Sinus rhythm Rate: Normal Rhythm: NSR [place]/QRS: LAHB/LAFB - QTC 500 Discharge - Discharge Clinical Impression: Anxiety Chest pain Qualifiers: Chest pain type: unspecified Qualified Code(s): R07.9 - Chest pain, unspecified Condition: Good Disposition: HOME, SELF-CARE Instructions: Chest Pain of Unclear Cause ([facility]), Reflux Disease (GERD) ([facility]) Additional Instructions: You were seen today for chest pain. The exact cause of your pain is unclear. However, based on your cardiac enzyme testing, chest x-ray, and EKG it does not appear that it is from an immediately life-threatening cause at this time. Although your testing here is normal is critical that you follow-up with your primary care physician for continued evaluation of this chest pain and possible stress testing. I recommended you see your physician within the next 24-48 hours to be evaluated for consideration of a stress test. Please return to emergency department immediately if you have worsening of your chest pain, sh ortness of breath, vomiting, become unable to exert yourself due to pain or difficulty breathing, you pass out, or have any pain that radiates into your arms, jaw, or back. Please also return if you have any additional symptoms that are concerning to you. Forms: Elevated Blood Pressure Referrals: JEAN CARLOS CURRY MD [Primary Care Provider] - Follow up in 3-5 days
[2019-02-18 20:50] VITALS: BP 148/82
--- NOTE | 2019-02-18 23:16 | EKG REPORT ---
SEVERITY:- ABNORMAL ECG - SINUS RHYTHM LEFT ANTERIOR FASCICULAR BLOCK BORDERLINE T WAVE ABNORMALITIES BORDERLINE PROLONGED QT INTERVAL : Confirmed by: Ramya Holliday 18-Feb-2019 23:15:07
== END 2019-02-18 21:17 | disposition home or self-care (01) ==
LOC: ER 15:43
DX: R07.9 Chest pain, unspecified (principal); F41.9 Anxiety disorder, unspecified; J44.9 Chronic obstructive pulmonary disease, unspecified; K21.9 Gastro-esophageal reflux disease without esophagitis; R11.0 Nausea; J02.9 Acute pharyngitis, unspecified; Z63.8 Other specified problems related to primary support group; Z90.49 Acquired absence of other specified parts of digestive tract; Z79.899 Other long term (current) drug therapy
CPT/HCPCS: 93005; 99285; 36415; 82553; 82550; 85025; 80053; 84484; 71046; 93010; A9270

== ENCOUNTER 2019-03-11 03:33 | Emergency (ER) | payer MEDICARE, BC ==
[2019-03-11] MEDS ORDERED: NA PHOS,M-B/NA PHOS,DI-BA (ADULT) 133 ML ENEMA PR ONE (06:12)
[2019-03-11 06:21] LABS: APPEARANCE,URINE CLEAR; BILIRUBIN,URINE NEGATIVE (NEGATIVE); COLOR,URINE STRAW; GLUCOSE, URINE NEGATIVE (NEGATIVE); KETONES,URINE NEGATIVE (NEGATIVE); LEUKOCYTE ESTERASE,URINE NEGATIVE (NEGATIVE); NITRITE,URINE NEGATIVE (NEGATIVE); PROTEIN,URINE NEGATIVE (NEGATIVE); URINE SPECIFIC GRAVITY 1.002; UROBILINOGEN,URINE NEGATIVE mg/dL (<2.0)
--- NOTE | 2019-03-11 06:33 | ER Document Report ---
ED General - General Chief Complaint: Bloody Stools Stated Complaint: RECTALL BLEEDING Time Seen by Provider: 03/11/19 05:32 Primary Care Provider: JEAN CARLOS CURRY MD [Primary Care Provider] - Follow up as needed Notes: Generally healthy, worried well 88-year-old female presents to the emergency department with chief complaint of rectal bleeding. Patient was difficult to follow as she had a litany of complaints and it took multiple times of redirection to focus on why she came to the emergency department this morning Patient states that she has only had 4 bowel movements in the last 9 months and she strained on and noticed that she had some bright red blood in the toilet. Patient does have a history of hemorrhoids. Patient denies syncope, dizziness/lightheadedness, acute weakness. Patient states that she also has a sore throat but was recently seen by ENT and had an upper endoscopy, barium swallow study, and had a clean bill of health. Patient denies fevers or chills, nausea or vomiting, abdominal, urinary symptoms. No other complaints TRAVEL OUTSIDE OF THE [place] IN LAST 30 DAYS: No - Related Data Allergies/Adverse Reactions: amoxicillin [From Augmentin] Allergy (Verified 02/18/19 15:50) cefoxitin Allergy (Verified 02/18/19 15:50) clavulanic acid [From Augmentin] Allergy (Verified 02/18/19 15:50) erythromycin base Allergy (Verified 02/18/19 15:50) Past Medical History - Social History Smoking Status: Never Smoker Family History: Reviewed & Not Pertinent Patient has suicidal ideation: No Patient has homicidal ideation: No Pulmonary Medical History: Reports: Hx Asthma, Hx COPD Renal/ Medical History: Denies: Hx Peritoneal Dialysis GI Medical History: Reports: Hx Gastroesophageal Reflux Disease Musculoskeletal Medical History: Reports Hx Arthritis Psychiatric Medical History: Reports: Hx Anxiety Past Surgical History: Reports: Hx Appendectomy, Hx Cholecystectomy, Hx Gynecologic Surgery - ex lap fibroidectomy, Hx Hysterectomy, Hx Orthopedic Surgery - l knee meniscal - Immunizations Hx Diphtheria, Pertussis, Tetanus Vaccination: Yes Review of Systems - Review of Systems Constitutional: See HPI EENT: No symptoms reported Cardiovascular: See HPI Respiratory: See HPI Gastrointestinal: See HPI Genitourinary: See HPI Female Genitourinary: No symptoms reported Musculoskeletal: No symptoms reported Skin: No symptoms reported Hematologic/Lymphatic: No symptoms reported Neurological/Psychological: See HPI Physical Exam - Vital signs Vitals: Temp Pulse Resp BP Pulse Ox 97.5 F 79 16 133/75 H 99 03/11/19 03:40 03/11/19 03:40 03/11/19 03:40 03/11/19 03:40 03/11/19 03:40 - Notes Notes: PHYSICAL EXAMINATION: Reviewed vital signs and charting by RN GENERAL: Alert, interacts well. No acute distress. HEAD: Normocephalic, atraumatic. EYES: Pupils equal and round. Extraocular movements intact. ENT: Oral mucosa moist, tongue midline. NECK: Full range of motion. Trachea midline. LUNGS: Clear to auscultation bilaterally, no wheezes, rales, or rhonchi. No respiratory distress. HEART: Regular rate and rhythm. No murmur GI: Abdomen soft, non-tender. No distention. Bowel sounds present. Rectal exam performed with female tax revenue officer and there were hemorrhoids visualized externally, Hemoccult was positive, and I was able to palpate a hard stool in the rectal vault. EXTREMITIES: Moves all 4 extremities spontaneously. No edema, No cyanosis. PSYCH: Normal affect, normal mood. SKIN: Warm, dry, normal turgor. No rashes or lesions noted. Course - Re-evaluation Re-evalutation: 03/11/19 06:31 Patient is overall well-appearing in no acute distress, daughter was at the bedside who is a nurse. It appears that there is a difficult relationship between the 2 and the daughter did not want to interfere with care or influence in care. I did pull daughter side after and she said that she overall has no concerns that her mom is healthy. The patient perseverated on her constipation and on her throat. I did an inspection of her throat and there was no significant abnormalities. Plan is to give patient a fleets enema and try to encourage a bowel movement. Urinalysis did not show evidence of a UTI. Patient is stable for discharge. - Vital Signs Vital signs: Temp Pulse Resp BP Pulse Ox 97.5 F 79 16 133/75 H 99 03/11/19 03:40 03/11/19 03:40 03/11/19 03:40 03/11/19 03:40 03/11/19 03:40 Discharge - Discharge Clinical Impression: Blood on rectal exam, Throat irritation Hemorrhoid Qualifiers: Hemorrhoid type: unspecified Qualified Code(s): K64.9 - Unspecified hemorrhoids Condition: Good Disposition: HOME, SELF-CARE Additional Instructions: You were seen in the emergency department this morning for hemorrhoids and for constipation. You received a fleets enema here. Your physical exam was reassuring and the source of the blood from her rectum is from a hemorrhoid. The urinalysis was negative for urinary tract infection. Please increase fiber in your diet by adding bran and you can drink prune juice. Continue to take the MiraLAX. If you develop acute weakness, passout, develop severe chest pain, acute shortness of breath, you develop severe abdominal pain or unable to pass gas, or if any other concerning symptoms please merely return to the emergency department for reevaluation. Referrals: JEAN CARLOS CURRY MD [Primary Care Provider] - Follow up as needed
[2019-03-11 07:05] VITALS: BP 128/67
== END 2019-03-11 07:06 | disposition home or self-care (01) ==
LOC: ER 03:33
DX: K64.9 Unspecified hemorrhoids (principal); K62.5 Hemorrhage of anus and rectum; J02.9 Acute pharyngitis, unspecified; Z88.0 Allergy status to penicillin; Z88.3 Allergy status to other anti-infective agents; Z90.49 Acquired absence of other specified parts of digestive tract; Z90.710 Acquired absence of both cervix and uterus
CPT/HCPCS: 99283; 81001; A9270; J3490

== ENCOUNTER 2019-04-08 09:42 | Emergency (ER) | payer MEDICARE, BC ==
[2019-04-08] MEDS ORDERED: ASPIRIN 81 MG TABLET, CHEWABLE PO ONE (10:08)
[2019-04-08 10:57] LABS: ABSOLUTE LYMPHOCYTES (AUTO) 0.9 10^3/uL (0.5-4.7); ABSOLUTE MONOCYTES (AUTO) 0.3 10^3/uL (0.1-1.4); ABSOLUTE NEUT (AUTO) 2.6 10^3/uL (1.7-8.2); BASOPHILS % (AUTO) 1.2 % (0-2); EOSINOPHILS % (AUTO) 0.8 % (0-6); HEMATOCRIT 37.1 % (36.0-47.0); HEMOGLOBIN 12.6 g/dL (12.0-15.5); LYMPHOCYTES % (AUTO) 22.3 % (13-45); MEAN CORPUSCULAR HEMOGLOBIN 29.4 pg (27.0-33.4); MEAN CORPUSCULAR HGB CONC 33.8 g/dL (32.0-36.0); MEAN CORPUSCULAR VOLUME 87 fl (80-97); MONOCYTES % (AUTO) 8.4 % (3-13); PLATELET COUNT 197 10^3/uL (150-450); RED BLOOD COUNT 4.26 10^6/uL (3.72-5.28); RED CELL DISTRIBUTION WIDTH 13.9 % (11.5-14.0); SEGMENTED NEUTROPHILS % (AUTO) 67.3 % (42-78); TOTAL CELLS COUNTED % (AUTO) 100 %; WHITE BLOOD COUNT 3.9 10^3/uL (4.0-10.5)
[2019-04-08 11:06] LABS: ALBUMIN 4.2 g/dL (3.5-5.0); ALKALINE PHOSPHATASE 49 U/L (38-126); ANION GAP 8 (5-19); ASPARTATE AMINO TRANSFERASE 26 U/L (14-36); BILIRUBIN,DIRECT 0.1 mg/dL (0.0-0.4); BILIRUBIN,TOTAL 1.1 mg/dL (0.2-1.3); BLOOD UREA NITROGEN 15 mg/dL (7-20); CALCIUM 9.9 mg/dL (8.4-10.2); CARBON DIOXIDE 27 mmol/L (22-30); CHLORIDE 105 mmol/L (98-107); CREATINE KINASE 48 U/L (30-135); GLUCOSE 84 mg/dL (75-110); POTASSIUM 4.1 mmol/L (3.6-5.0); TOTAL PROTEIN 6.6 g/dL (6.3-8.2)
[2019-04-08 11:17] LABS: CREATINE KINASE MB 1.47 ng/mL (<4.55)
[2019-04-08 11:18] LABS: TROPONIN I < 0.012 ng/mL
[2019-04-08 11:24] LABS: INTERNATIONAL RATION (INR) 1.08
[2019-04-08 11:25] LABS: PARTIAL THROMBOPLASTIN TIME 34.3 SEC (23.5-35.8)
[2019-04-08 11:27] LABS: D-DIMER 0.34 ug/mL (0.00-0.50)
--- NOTE | 2019-04-08 12:18 | RADIOLOGY REPORT (SQ) ---
EXAM DESCRIPTION: CHEST SINGLE VIEW COMPLETED DATE/TIME: 04/08/2019 12:02 pm REASON FOR STUDY: chest pain COMPARISON: PA and lateral views of the chest from 02/18/2019. EXAM PARAMETERS: NUMBER OF VIEWS: One view. TECHNIQUE: Single frontal radiographic view of the chest acquired. RADIATION DOSE: NA LIMITATIONS: None. FINDINGS: LUNGS AND PLEURA: Emphysema. There is no acute consolidation, pleural effusion or pneumot horax. MEDIASTINUM AND HILAR STRUCTURES: Unchanged mediastinal and hilar contours. HEART AND VASCULAR STRUCTURES: No cardiomegaly. The pulmonary vasculature is within normal limits. BONES: No acute findings. HARDWARE: None in the chest. OTHER: No other finding. IMPRESSION: COPD without a superimposed acute cardiopulmonary process. TECHNICAL DOCUMENTATION: JOB ID: [id number] [employer]- All Rights Reserved Reading location - IP/workstation name: [email or web address]
--- NOTE | 2019-04-08 16:00 | ER Document Report ---
ED General - General Chief Complaint: Chest Pain Stated Complaint: CHEST PAIN Time Seen by Provider: 04/08/19 10:57 Primary Care Provider: JEAN CARLOS CURRY MD [Primary Care Provider] - Follow up as needed TRAVEL OUTSIDE OF THE [place] IN LAST 30 DAYS: No - HPI Notes: 88 y/o w/ chest pain pain is a burning kind of pain she had a stress test within the last week that she is due to follow up with plant sprayer for further testing/evaluation as an outpatient she thinks her pain is reflux but notes normal endoscopies she denies fever, chills, sob, sweats no h/o pe or dvt - Related Data Allergies/Adverse Reactions: amoxicillin [From Augmentin] Allergy (Verified 04/08/19 09:43) cefoxitin Allergy (Verified 04/08/19 09:43) clavulanic acid [From Augmentin] Allergy (Verified 04/08/19 09:43) erythromycin base Allergy (Verified 04/08/19 09:43) Past Medical History - Social History Smoking Status: Never Smoker Family History: Reviewed & Not Pertinent Patient has suicidal ideation: No Patient has homicidal ideation: No Pulmonary Medical History: Reports: Hx Asthma, Hx COPD Renal/ Medical History: Denies: Hx Peritoneal Dialysis GI Medical History: Reports: Hx Gastroesophageal Reflux Disease Musculoskeletal Medical History: Reports Hx Arthritis Psychiatric Medical History: Reports: Hx Anxiety Past Surgical History: Reports: Hx Appendectomy, Hx Cholecystectomy, Hx Gynecologic Surgery - ex lap fibroidectomy, Hx Hysterectomy, Hx Orthopedic Surgery - l knee meniscal - Immunizations Hx Diphtheria, Pertussis, Tetanus Vaccination: Yes Review of Systems - Review of Systems Constitutional: No symptoms reported EENT: No symptoms reported Cardiovascular: Chest pain Respiratory: No symptoms reported Gastrointestinal: No symptoms reported Genitourinary: No symptoms reported Female Genitourinary: No symptoms reported Musculoskeletal: No symptoms reported Skin: No symptoms reported Hematologic/Lymphatic: No symptoms reported Neurological/Psychological: No symptoms reported Physical Exam - Vital signs Vitals: Temp Pulse Resp BP Pulse Ox 97.5 F 76 20 100/59 L 100 04/08/19 10:03 04/08/19 10:03 04/08/19 10:03 04/08/19 10:03 04/08/19 10:03 Interpretation: Normal - General General appearance: Appears well, Alert - HEENT Head: Normocephalic, Atraumatic Eyes: Normal Pupils: PERRL - Respiratory Respiratory status: No respiratory distress Chest status: Nontender Breath sounds: Normal Chest palpation: Normal - Cardiovascular Rhythm: Regular Heart sounds: Normal auscultation Murmur: No - Abdominal Inspection: Normal Distension: No distension Bowel sounds: Normal Tenderness: Nontender Organomegaly: No organomegaly - Back Back: Normal, Nontender - Extremities General upper extremity: Normal inspection, Nontender, Normal color, Normal ROM, Normal temperature General lower extremity: Normal inspection, Nontender, Normal color, Normal ROM, Normal temperature, Normal weight bearing. No: Aydin's sign - Neurological Neuro grossly intact: Yes Cognition: Normal Orientation: AAOx4 [place] Coma Scale Eye Opening: Spontaneous [place] Coma Scale Verbal: Oriented Andreia Coma Scale Motor: Obeys Commands [place] Coma Scale Total: 15 Speech: Normal Motor strength normal: LUE, RUE, LLE, RLE Sensory: Normal - Psychological Associated symptoms: Normal affect, Normal mood - Skin Skin Temperature: Warm Skin Moisture: Dry Skin Color: Normal Course - Re-evaluation Re-evalutation: 04/08/19 16:02 patient w/ chest pain advanced age warrants admission for cardiac obs however patient has refused admission and will follow up with plant sprayer as an outpt EKG nonischemic 2 trops neg not hypoxic or tachycardic to suggest PE HEART - 2 - Vital Signs Vital signs: Temp Pulse Resp BP Pulse Ox 97.5 F 76 20 100/59 L 100 04/08/19 10:03 04/08/19 10:03 04/08/19 10:03 04/08/19 10:03 04/08/19 10:25 - Laboratory Result Diagrams: 04/08/19 10:35 04/08/19 10:35 Laboratory results interpreted by me: 04/08/19 10:35 WBC 3.9 L - Diagnostic Test Radiology reviewed: Reports reviewed - EKG Interpretation by Me Additional EKG results interpreted by me: 04/08/19 16:03 EKG - NSR, rate of 68, possible LAFB vs artifactually generated Discharge - Discharge Clinical Impression: Chest pain Qualifiers: Chest pain type: unspecified Qualified Code(s): R07.9 - Chest pain, unspecified Condition: Stable Disposition: HOME, SELF-CARE Instructions: Chest Pain of Unclear Cause ([facility]) Additional Instructions: Follow up with cardiology as directed Return to the ED with worsening of any kind Referrals: JEAN CARLOS CURRY MD [Primary Care Provider] - Follow up as needed
[2019-04-08 16:22] VITALS: BP 131/87
--- NOTE | 2019-04-08 23:10 | EKG REPORT ---
SEVERITY:- ABNORMAL ECG - SINUS RHYTHM LEFT ANTERIOR FASCICULAR BLOCK NONSPECIFIC T ABNORMALITIES, LATERAL LEADS : Confirmed by: Maria L Montana MD 08-Apr-2019 23:09:26
== END 2019-04-08 16:23 | disposition home or self-care (01) ==
LOC: ER 09:42
DX: R07.9 Chest pain, unspecified (principal); J44.9 Chronic obstructive pulmonary disease, unspecified; Z88.0 Allergy status to penicillin; Z88.1 Allergy status to other antibiotic agents
CPT/HCPCS: 93005; 99285; 36415; 82553; 82550; 85025; 85610; 85730; 80053; 84484; 85379; 71045; 93010; A9270

== ENCOUNTER → 2020-02-08 | Outpatient (CLI) | payer MEDICARE, BC ==
--- NOTE | 2020-02-09 08:56 | WOMENS IMAGING REPORT ---
EXAM DESCRIPTION: 3D SCREENING MAMMO BILAT IMAGES COMPLETED DATE/TIME: 02/08/2020 2:17 pm REASON FOR STUDY: Z12.31 ENCNTR SCREEN MAMMOGRAM FOR MALIGNANT NEOPLASM OF BREAST Z12.31 ENCNTR SCR EEN MAMMOGRAM FOR MALIGNANT NEOPLASM OF [place] COMPARISON: 02/03/2019 and 02/01/2018. EXAM PARAMETERS: Standard craniocaudal and mediolateral oblique views of each breast recorded using digital acquisition and breast tomosynthesis. Read with the assistance of CAD. .[facility] - [employer] Version 9.2 LIMITATIONS: None. FINDINGS: Findings present which are benign by mammographic criteria. No suspicious masses, calcific ations or architectural distortion. Pertinent benign findings: Stable calcifications. Benign mammographic findings may include one or more of the following: Smooth masses, popcorn/rim/coa rse calcifications, asymmetries, post-procedure changes, and lesions with long-standing stability. IMPRESSION: BENIGN MAMMOGRAPHIC FINDINGS. BIRADS 2 BREAST DENSITY: c. The breasts are heterogeneously dense, which may obscure small masses. BIRAD: ASSESSMENT: 2 BENIGN FINDING(S) RECOMMENDATION: ROUTINE SCREENING COMMENT: The patient has been notified of the results by letter per [place] requirements. Additional no tification policies are in place for contacting patient with suspicious or incomplete findings. Quality ID #[id number]: The [employer] recommends an annual screening mammogram for women aged 40 years or over. This facility utilizes a reminder system to ensure that all patients receive reminder letters, and/or direct phone calls for appointments. This includes reminders for routine scr eening mammograms, diagnostic mammograms, or other Breast Imaging Interventions when appropriate. Th is patient will be placed in the appropriate reminder system. TECHNICAL DOCUMENTATION: FINDING NUMBER: (1) ASSESSMENT: (1) JOB ID: [id number] [employer]- All Rights Reserved Reading location - IP/workstation name: [email or web address]-[facility]-[email or web address]
== END ==
LOC: WI 13:10
PROVIDERS: ATTEND Internal Medicine
DX: Z12.31 Encounter for screening mammogram for malignant neoplasm of breast (principal)
CPT/HCPCS: 77063; 77067